=== PATIENT | female | born 1955 | race Caucasian/White ===

== ENCOUNTER 2017-09-02 09:19 | Inpatient (IN) | payer OTHER ==
[2017-09-02 09:32] VITALS: BMI 48.6
[2017-09-02] MEDS ORDERED: ASPIRIN 81 MG CHEWABLE TABLETS PO ONE (09:52)
[2017-09-02] MEDS ORDERED: SODIUM CHLORIDE 500 ML IV STA (09:52)
--- NOTE | 2017-09-02 09:53 | PDOC ---
Attending Attestation - HPI HPI: 09/02/17 10:27 The patient is a 62 year old female with a significant PMH of ME (on Plavix), HTN, asthma, and hyperlipidemia who presents to the emergency department with intermittent chest pain and palpitations beginning approximately 3 days ago. The patient describes her chest pain as an intermittent substernal pressure that is aggravated by exertion and alleviated by rest. The patient denies chest pain at presentation.The patient also reports noting elevated blood pressure readings at home, about in the 180s. The patient states her chest pain is not similar to her prior ME. The patient denies history of blood clots. She denies sick contacts or recent travel. Allergies: NKA PCP: Dr. Funes - Physicial Exam PE: 09/02/17 10:27 Vitals: Triage Vital signs reviewed General Appearance: no acute distress, well nourished well developed, Chest Wall: Nontender Cardiac: Regular rate and rhythm, no murmurs, no rubs, no gallops, Lungs: Clear to auscultation bilateral, good air movement bilaterally, Abdomen: Soft, nondistended, normal bowel sounds, nontender to palpation Extremities: Full range of motion to all extremities, no cyanosis, clubbing, or edema Skin: Warm and dry, no rashes or lesions, no petechiae Neuro: AOX3; Cranial Nerves 2-12 grossly intact, Strength intact to all extremities, Sensation intact to all extremities Psych: normal mood, normal affect - Medical Decision Making 09/02/17 10:27 The patient is a 62 year old female with a significant PMH of ME (on Plavix), HTN, asthma, and hyperlipidemia who presents to the emergency department with intermittent chest pain and palpitations beginning approximately 3 days ago. The patient describes her chest pain as an intermittent substernal pressure that is aggravated by exertion and alleviated by rest. The patient denies chest pain at presentation.The patient also reports noting elevated blood pressure readings at home, about in the 180s. The patient states her chest pain is not similar to her prior ME. The patient denies history of blood clots. She denies sick contacts or recent travel. Allergies: NKA PCP: Dr. Funes <Quan Curiel - Last Filed: 09/02/17 11:29> - Resident Resident Name: Dima Kim - ED Attending Attestation I have performed the following: I have examined & evaluated the patient, The case was reviewed & discussed with the resident, I agree w/resident's findings & plan, Exceptions are as noted - Medical Decision Making Differential diagnosis includes ACS versus ocular abnormality versus anemia. We'll check labs EKG d-dimer troponin observe and reassess. Heart score 5. Troponin negative. D-dimer negative. Low suspicion for PE. Will admit to medicine for further evaluation. Cardiology consulted. <Robert Cam - Last Filed: 09/02/17 16:00> Heart Score/ECG Review - ECG Impressions Comment:: 09/02/17 11:27 EKG performed at 938. Demonstrates sinus rhythm 100 bpm left ventricular hypertrophy. Biphasic T waves in leads V3 through V6. No ST elevations. Interpreted by me. <Robert Cam - Last Filed: 09/02/17 16:00>
--- NOTE | 2017-09-02 10:02 | PDOC ---
History of Present Illness - General Chief Complaint: Blood Pressure Problem Stated Complaint: BLOOD PRESSURE PROBLEM Time Seen by Provider: 09/02/17 09:37 History Source: Patient Exam Limitations: No Limitations - History of Present Illness Initial Comments: 09/02/17 09:58 Patient is a 62F with history of LA in 2017, HTN, obesity here today complaining of chest pain, palpitations and elevated blood pressure for the past four days. Her chest pain is worsened with exertion and improved with rest. Denies fevers, chills, nausea, vomiting. Denies history of blood clots, unilateral leg swelling, and recent travel. Denies fevers, chills, nausea, vomiting. Patient describes the pain as a substernal pressure. Does not know name of risk tech. On Plavix. PCP: Dejan Montalvo Past History - Past Medical History Allergies/Adverse Reactions: Allergies Allergy/AdvReac Type Severity Reaction Status Date / Time No Known Allergies Allergy Verified 09/02/17 09:25 Home Medications: Ambulatory Orders Atorvastatin Ca [Lipitor] 40 mg PO HS 09/02/17 Bisoprolol Fumarate [Zebeta (Nf) -] 10 mg PO DAILY 09/02/17 Clonidine HCl 0.1 mg PO HS 09/02/17 Clopidogrel Bisulfate [Plavix] 75 mg PO DAILY 09/02/17 Asthma: Yes Cardiac Disorders: Yes (MILD LA) COPD: No HTN: Yes Hypercholesterolemia: Yes - Suicide/Smoking/Psychosocial Hx Smoking History: Never smoked Have you smoked in the past 12 months: No Information on smoking cessation initiated: No Hx Alcohol Use: No Drug/Substance Use Hx: No Substance Use Type: None Review of Systems - Review of Systems Comments:: 09/02/17 10:02 GENERAL/CONSTITUTIONAL: No fever or chills. No weakness. HEAD, EYES, EARS, NOSE AND THROAT: No change in vision. No sore throat. CARDIOVASCULAR: Positive for chest pain. Neative for or shortness of breath RESPIRATORY: No cough, wheezing, or hemoptysis. GASTROINTESTINAL: No nausea, vomiting, diarrhea or constipation. GENITOURINARY: No dysuria, frequency, or change in urination. MUSCULOSKELETAL: No joint or muscle swelling or pain. No neck or back pain. SKIN: No rash NEUROLOGIC: No headache, vertigo, loss of consciousness, or change in strength/ sensation. HEMATOLOGIC/LYMPHATIC: No anemia, easy bleeding, or history of blood clots. ALLERGIC/IMMUNOLOGIC: No hives or skin allergy. *Physical Exam - Vital Signs Last Vital Signs Temp Pulse Resp BP Pulse Ox 98.6 F 100 H 18 178/108 100 09/02/17 09:26 09/02/17 09:26 09/02/17 09:26 09/02/17 09:26 09/02/17 09:26 - Physical Exam Comments: 09/02/17 10:03 GENERAL: Awake, alert, and fully oriented, in no acute distress, obese HEAD: No signs of trauma, normocephalic, atraumatic EYES: PERRLA, EOMI, sclera anicteric, conjunctiva clear ENT: Auricles normal inspection, hearing grossly normal, nares patent, oropharynx clear without exudates. Moist mucosa NECK: Normal ROM, supple, no lymphadenopathy, JVD, or masses LUNGS: No distress, speaks full sentences, clear to auscultation bilaterally HEART: Regular rate and rhythm, normal S1 and S2, no murmurs, rubs or gallops, peripheral pulses normal and equal bilaterally. ABDOMEN: Soft, nontender, normoactive bowel sounds. No guarding, no rebound. No masses EXTREMITIES: Normal inspection, Normal range of motion, no edema. No clubbing or cyanosis. NEUROLOGICAL: Cranial nerves II through XII grossly intact. Normal speech, normal gait, no focal sensorimotor deficits SKIN: Warm, Dry, normal turgor, no rashes or lesions noted. Heart Score/ECG Review - History History: Highly suspicious - Electrocardiogram EKG: Non specific repolarization disturbance - Age Age: 45-65 - Risk Factors Risk Factors Heart Score: Yes Hx Hypertension, Yes Hx Obesity Based on the list above the patient has:: 1-2 risk factors - Troponin Troponin: </= normal limit - Score Heart Score - Total: 5 ED Treatment Course - LABORATORY CBC & Chemistry Diagram: 09/02/17 10:29 09/02/17 10:29 - RADIOLOGY Radiology Studies Ordered: Category Date Time Status CHEST X-RAY PORTABLE* [RAD] Stat Radiology 09/02/17 09:55 Ordered Medical Decision Making - Medical Decision Making 09/02/17 10:03 Patient is 62F with history of CAD, HTN, obesity here today with chest pain and urinary frequency. Vital signs notable for tachycardia and BP to 178/100. DDx includes, but is not limited to: ACS, arrhythmia, PE. Will do basic cardiac workup, UA, d-dimer. EKG shows sinus tachycardia with rate of 100. No st elevations/depressions. T wave inversions in I, II, V4-V6. Normal ND/QRS/QTc intervals. Normal axis. 09/02/17 11:15 CXR shows no acute cardiopulmonary process. 09/02/17 11:37 Laboratory Tests 09/02/17 09/02/17 09/02/17 10:20 10:29 10:29 WBC 13.3 H Hgb 13.5 Plt Count 243 INR 1.01 D-Dimer 265 BUN Creatinine Troponin I Urine Nitrite Positive Ur Leukocyte Esterase 1+ H Urine WBC (Auto) 12 09/02/17 10:29 WBC Hgb Plt Count INR D-Dimer BUN 27 H Creatinine 1.1 H Troponin I < 0.02 Urine Nitrite Ur Leukocyte Esterase Urine WBC (Auto) CBC shows leukocytosis, D-dimer negative. UA positive for UTI. CMP shows possible dehydration. Troponin undetectable. Patient started on ceftriaxone. Patient has reassessed, feels better, tachycardia has resolved. Hospitalist paged for admission. 09/02/17 12:38 Dr Nix accepted. *DC/Admit/Observation/Transfer Diagnosis at time of Disposition: Chest pain - Discharge Dispostion Condition at time of disposition: Stable Decision to Admit order: Yes - Referrals Referrals: Michael Funes PA [Primary Care Provider] - - Patient Instructions - Post Discharge Activity
[2017-09-02] MEDS ORDERED: ASPIRIN 81 MG CHEWABLE TABLETS ONE (10:04)
[2017-09-02 10:38] LABS: BASO % 0.4 % (0-2.0); EOS % 0.1 % (0-4.5); HEMOGLOBIN 13.5 GM/dL (10.7-15.3); LYMPH % 10.4 % (8-40); MCHC 32.2 g/dl (32.0-36.0); MEAN CELL VOLUME 83.9 fl (80-96); MEAN PLT VOLUME 8.8 fl (7.5-11.1); MONO % 6.6 % (3.8-10.2); NEUT % 82.5 % (42.8-82.8); PLATELET COUNT 243 K/MM3 (134-434); RDW 15.9 % (11.6-15.6); WHITE BLOOD COUNT 13.3 K/mm3 (4.0-10.0)
[2017-09-02 10:40] LABS: URINE APPEARANCE SLCLOUDY; URINE BILIRUBIN NEGATIVE (<2.0 mg/dL); URINE BLOOD 2+ (NEGATIVE); URINE COLOR YELLOW; URINE GLUCOSE (UA) NEGATIVE (NEGATIVE); URINE KETONE NEGATIVE (NEGATIVE); URINE NITRITE POSITIVE (NEGATIVE); URINE PROTEIN NEGATIVE (NEGATIVE); URINE UROBILINOGEN NEGATIVE mg/dL (0.2-1.0)
[2017-09-02 10:44] LABS: URINE LEUK ESTERASE 1+ (NEGATIVE)
[2017-09-02 10:48] LABS: EPI CELLS FEW /HPF (FEW); URINE BACTERIA MANY /hpf (NONE SEEN); URINE MUCUS MANY
[2017-09-02 11:14] LABS: INR 1.01 (0.82-1.09); PROTHROMBIN TIME (PATIENT) 11.4 SEC (9.7-13.0)
[2017-09-02 11:21] LABS: ALBUMIN 4.1 g/dl (3.4-5.0); ALK PHOS 87 U/L (45-117); ANION GAP 9 (8-16); BILIRUBIN,TOTAL 0.6 mg/dL (0.2-1.0); BLOOD UREA NITROGEN 27 mg/dL (7-18); CALCIUM 8.8 mg/dL (8.5-10.1); CHLORIDE 103 mmol/L (98-107); CO2 29 mmol/L (21-32); CREATININE 1.1 mg/dL (0.55-1.02); GLUCOSE,RANDOM 142 mg/dL (74-106); MAGNESIUM 2.3 mg/dL (1.8-2.4); POTASSIUM 4.5 mmol/L (3.5-5.1); SGOT/AST 22 U/L (15-37); SGPT/ALT 33 U/L (12-78); SODIUM 141 mmol/L (136-145); TOT PROT 7.4 g/dl (6.4-8.2)
[2017-09-02] MEDS ORDERED: CEFTRIAXONE 1,000 MG in DEXTROSE 5%-WATER - 50 ML IVPB ONE (11:31)
[2017-09-02] MEDS ORDERED: CEFTRIAXONE 1 GM/50 ML BAG ONE (11:37)
--- NOTE | 2017-09-02 15:51 | PN ---
Teaching Attending Note Name of Resident: Ihsan Cartagena ATTENDING PHYSICIAN STATEMENT I saw and evaluated the patient. I reviewed the resident's note and discussed the case with the resident. I agree with the resident's findings and plan as documented with exceptions below. SUBJECTIVE: 62 yof with PMhx of CAD s/p ?Small [place] (in [place], per patient no cath or stenting) on plavix, HTN, HLD, morbid obesity, comes with 2-3 days of intermittent palpitations associated with 'breeze like feeling over her chest', non exertional transient with self resolution with no clear exacerbating or relieving factors. No prior similar history. Minimally active at baseline. Also reports some urinary frequency but no abdominal or back pain, fevers, chills, nausea, vomiting or new concerns. OBJECTIVE: Vital Signs Period Temp Pulse Resp BP Sys/[place] Pulse Ox Last 24 Hr 98.2 F-98.6 F 91-100 17-18 149-178/74-108 95-100 Intake & Output 08/30/17 08/31/17 09/01/17 09/02/17 23:59 23:59 23:59 23:59 Weight 320 lb GENERAL: Awake, alert, and fully oriented, in no acute distress, morbidly obese lady in no acute distress. HEAD: Normal with no signs of trauma. EYES: Pupils equal, round and reactive to light, extraocular movements intact, sclera anicteric, conjunctiva clear. No lid lag. EARS, NOSE, THROAT: Ears normal, nares patent, oropharynx clear without exudates. Moist mucous membranes. NECK: Soft, supple, no JVD LUNGS: distant breath sounds given body habitus, equal, clear to auscultation bilaterally. No wheezes, and no crackles. No accessory muscle use. HEART: S1s2 regular, systolic ejection murmur right sternal border. ABDOMEN: Soft, obes, nontender, not distended, normoactive bowel sounds, no guarding, no rebound, no masses. No suprapubic or CVA tenderness MUSCULOSKELETAL: Normal range of motion at all joints. No bony deformities or tenderness. No CVA tenderness. UPPER EXTREMITIES: 2+ pulses, warm, well-perfused. No cyanosis. No clubbing. No peripheral edema. LOWER EXTREMITIES: 2+ pulses, warm, well-perfused. No calf tenderness. No peripheral edema. NEUROLOGICAL: Cranial nerves II-XII grossly intact. Normal speech. PSYCHIATRIC: Cooperative. Good eye contact. Appropriate mood and affect. SKIN: Warm, dry, normal turgor, no rashes or lesions noted, normal capillary refill. Home Medication List Medication Instructions Recorded Confirmed Type Amlodipine Besylate 10 mg PO 09/02/17 History Atorvastatin Ca [Lipitor] 40 mg PO HS 09/02/17 09/02/17 History Bisoprolol Fumarate [Zebeta (Nf) -] 10 mg PO DAILY 09/02/17 09/02/17 History Clonidine HCl 0.1 mg PO HS 09/02/17 09/02/17 History Clopidogrel Bisulfate [Plavix] 75 mg PO DAILY 09/02/17 09/02/17 History Valsartan/Hydrochlorothiazide 1 each PO DAILY 09/02/17 09/02/17 History [Valsartan-Hctz 320-25 mg Tab] Active Medications Generic Name Dose Route Start Last Admin Trade Name Freq PRN Reason Stop Dose Admin Amlodipine Besylate 10 mg 09/03/17 10:00 Norvasc - PO DAILY [facility] Atenolol 50 mg 09/03/17 10:00 Tenormin - PO DAILY [facility] Atorvastatin Calcium 40 mg 09/02/17 22:00 Lipitor - PO HS [facility] Clonidine 0.1 mg 09/02/17 22:00 Catapres - PO HS [facility] Clopidogrel Bisulfate 75 mg 09/03/17 10:00 Plavix - PO DAILY [facility] Heparin Sodium (Porcine) 5,000 unit 09/02/17 22:00 Heparin - SQ TID [facility] Hydrochlorothiazide 25 mg 09/03/17 10:00 Hctz - PO DAILY [facility] Valsartan 320 mg 09/03/17 10:00 Diovan - PO DAILY [facility] Laboratory Results - last 24 hr 09/02/17 09/02/17 09/02/17 10:20 10:29 10:29 WBC 13.3 H RBC 5.00 Hgb 13.5 Hct 42.0 MCV 83.9 MCH 27.0 MCHC 32.2 RDW 15.9 H Plt Count 243 MPV 8.8 Neutrophils % 82.5 Lymphocytes % 10.4 Monocytes % 6.6 Eosinophils % 0.1 Basophils % 0.4 Nucleated RBC % 0 PT with INR 11.40 INR 1.01 D-Dimer 265 Sodium Potassium Chloride Carbon Dioxide Anion Gap BUN Creatinine Creat Clearance w eGFR Random Glucose Calcium Magnesium Total Bilirubin AST ALT Alkaline Phosphatase Creatine Kinase Creatine Kinase Index CK-MB (CK-2) Troponin I Total Protein Albumin Urine Color Yellow Urine Appearance Slcloudy Urine pH 6.0 Ur Specific [place] 1.024 Urine Protein Negative Urine Glucose (UA) Negative Urine Ketones Negative Urine Blood 2+ H Urine Nitrite Positive Urine Bilirubin Negative Urine Urobilinogen Negative Ur Leukocyte Esterase 1+ H Urine WBC (Auto) 12 Urine RBC (Auto) 19 Ur Epithelial Cells Few Urine Bacteria Many Urine Mucus Many 09/02/17 10:29 WBC RBC Hgb Hct MCV MCH MCHC RDW Plt Count MPV Neutrophils % Lymphocytes % Monocytes % Eosinophils % Basophils % Nucleated RBC % PT with INR INR D-Dimer Sodium 141 Potassium 4.5 Chloride 103 Carbon Dioxide 29 Anion Gap 9 BUN 27 H Creatinine 1.1 H Creat Clearance w eGFR 50.50 Random Glucose 142 H Calcium 8.8 Magnesium 2.3 Total Bilirubin 0.6 AST 22 ALT 33 Alkaline Phosphatase 87 Creatine Kinase 334 H Creatine Kinase Index 0.8 CK-MB (CK-2) 2.682 Troponin I < 0.02 Total Protein 7.4 Albumin 4.1 Urine Color Urine Appearance Urine pH Ur Specific [place] Urine Protein Urine Glucose (UA) Urine Ketones Urine Blood Urine Nitrite Urine Bilirubin Urine Urobilinogen Ur Leukocyte Esterase Urine WBC (Auto) Urine RBC (Auto) Ur Epithelial Cells Urine Bacteria Urine Mucus EKG - T inversion in I, aVL, biphasic T waves in V3-V6 CXR - no acute process ASSESSMENT AND PLAN: 62 yof with PMHx of CAD s/p ?Small [place] on plavix (no reported cardiac cath or stent per patient), HTN, HLD, Morbid obesity,admitted with palpitations, abnormal EKG and lower uncomplicated UTI. -Palpitations -EKG with lateral ischemia, no prior available -Lower uncomplicated UTI -Morbid obesity -CAD on plavix ?prior small [place] in 2017 -HTN -HLD PLan: Telemetry, r/o ACS. cardiology consult. ASA/plavix/statin/atenolol. Check lipid panel. Amlodipine/valsartan/HCTZ/clonidine for BP. 2D echo. Ceftriaxone, follow up urine cultures. Advised patient on outpatient sleep study and likely underlying CIPRIANO. DVTPPX lovenox Dispo pending resolution of medical issues. Plan discussed with patient in detail, all questions answered. Total admit time 65 min.
--- NOTE | 2017-09-02 16:37 | HP ---
CHIEF COMPLAINT: palpitations PCP: HISTORY OF PRESENT ILLNESS: 62 yo Thai speaking F with PMhx of HTN, HLD and ME presents with 3 day history of palpitations. She states that for the past three days she has had intermittent episodes of palpitations which last for few seconds and resolve on their own. She also states that she has a "breeze-like" sensation that radiates across her chest and down her left arm. Not associated with activity and resolved spontaneously. She had a "mini [place]" one year prior in [place] but denies ever having cath or stress test done. Of note she states that the only change is that when these symptoms started it was after receiving cortisol injection for shoulder pain.She also endorses increased urinary frequency. Currently denies CP,BAIRD,SOB, abdominal pain, nausea, vomiting, fever , or chills. ER course was notable for: (1)EKG was NSR with T wave abnormalities in lateral leads. (2)1st troponin was negative. (3)UA showed UTI and cultures sent and started on Ceftiaxone. Recent Travel: Denies PAST MEDICAL HISTORY: Morbid obesity, HTN, HLD, ME (2017) PAST SURGICAL HISTORY: hernia repair, hysterectomy, cholecystectomy. Social History: Smoking:never Alcohol:denies Drugs: denies Family History: Allergies No Known Allergies Allergy (Verified 09/02/17 09:25) HOME MEDICATIONS: Home Medications Medication Instructions Recorded Amlodipine Besylate 10 mg PO 09/02/17 Atorvastatin Ca [Lipitor] 40 mg PO HS 09/02/17 Bisoprolol Fumarate [Zebeta (Nf) -] 10 mg PO DAILY 09/02/17 Clonidine HCl 0.1 mg PO HS 09/02/17 Clopidogrel Bisulfate [Plavix] 75 mg PO DAILY 09/02/17 Valsartan/Hydrochlorothiazide 1 each PO DAILY 09/02/17 [Valsartan-Hctz 320-25 mg Tab] REVIEW OF SYSTEMS CONSTITUTIONAL: Absent: fever, chills, diaphoresis, generalized weakness, malaise, loss of appetite, weight change HEENT: Absent: rhinorrhea, nasal congestion, throat pain, throat swelling, difficulty swallowing, mouth swelling, ear pain, eye pain, visual changes CARDIOVASCULAR: Absent: chest pain, syncope, palpitations, irregular heart rate, lightheadedness , peripheral edema RESPIRATORY: Absent: cough, shortness of breath, dyspnea with exertion, orthopnea, wheezing, stridor, hemoptysis GASTROINTESTINAL: Absent: abdominal pain, abdominal distension, nausea, vomiting, diarrhea, constipation, melena, hematochezia GENITOURINARY: Absent: dysuria, frequency, urgency, hesitancy, hematuria, flank pain, genital pain MUSCULOSKELETAL: Absent: myalgia, arthralgia, joint swelling, back pain, neck pain SKIN: Absent: rash, itching, pallor HEMATOLOGIC/IMMUNOLOGIC: Absent: easy bleeding, easy bruising, lymphadenopathy, frequent infections ENDOCRINE: Absent: unexplained weight gain, unexplained weight loss, heat intolerance, cold intolerance NEUROLOGIC: Absent: headache, focal weakness or paresthesias, dizziness, unsteady gait, seizure, mental status changes, bladder or bowel incontinence PSYCHIATRIC: Absent: anxiety, depression, suicidal or homicidal ideation, hallucinations. PHYSICAL EXAMINATION Vital Signs - 24 hr 09/02/17 09/02/17 09/02/17 09:26 09:59 10:40 Temperature 98.6 F Pulse Rate 100 H Pulse Rate [ 91 H Apical] Respiratory 18 17 Rate Blood Pressure 178/108 Blood Pressure 165/74 [Right Arm] O2 Sat by Pulse 100 100 96 Oximetry (%) 09/02/17 14:30 Temperature 98.2 F Pulse Rate Pulse Rate [ 95 H Apical] Respiratory 18 Rate Blood Pressure Blood Pressure 149/79 [Right Arm] O2 Sat by Pulse 95 Oximetry (%) GENERAL: AAOx3, NAD HEAD:NC/AT EYES: PERRLA, EOMI, conjunctiva clear. No lid lag. EARS, NOSE, THROAT:Moist mucous membranes. NECK: supple without lymphadenopathy, JVD, or masses. LUNGS: CTAB. No wheezes, and no crackles. No accessory muscle use. HEART: RRR, normal S1 and S2 ,3/6 MELISSA RSB ABDOMEN: Soft, obese, ventral hernia, nontender, not distended, normoactive bowel sounds, no guarding, no rebound, no masses. MUSCULOSKELETAL: Normal range of motion at all joints. No bony deformities or tenderness. No CVA tenderness. UPPER EXTREMITIES: 2+ pulses, warm, well-perfused. No cyanosis. No clubbing. No peripheral edema. LOWER EXTREMITIES: 2+ pulses, warm, well-perfused. No calf tenderness.trace edema bilat. NEUROLOGICAL: Cranial nerves II-XII intact. Normal speech. PSYCHIATRIC: Cooperative. Good eye contact. Appropriate mood and affect. Laboratory Results - last 24 hr 09/02/17 09/02/17 09/02/17 10:20 10:29 10:29 WBC 13.3 H RBC 5.00 Hgb 13.5 Hct 42.0 MCV 83.9 MCH 27.0 MCHC 32.2 RDW 15.9 H Plt Count 243 MPV 8.8 Neutrophils % 82.5 Lymphocytes % 10.4 Monocytes % 6.6 Eosinophils % 0.1 Basophils % 0.4 Nucleated RBC % 0 PT with INR 11.40 INR 1.01 D-Dimer 265 Sodium Potassium Chloride Carbon Dioxide Anion Gap BUN Creatinine Creat Clearance w eGFR Random Glucose Calcium Magnesium Total Bilirubin AST ALT Alkaline Phosphatase Creatine Kinase Creatine Kinase Index CK-MB (CK-2) Troponin I Total Protein Albumin Urine Color Yellow Urine Appearance Slcloudy Urine pH 6.0 Ur Specific [place] 1.024 Urine Protein Negative Urine Glucose (UA) Negative Urine Ketones Negative Urine Blood 2+ H Urine Nitrite Positive Urine Bilirubin Negative Urine Urobilinogen Negative Ur Leukocyte Esterase 1+ H Urine WBC (Auto) 12 Urine RBC (Auto) 19 Ur Epithelial Cells Few Urine Bacteria Many Urine Mucus Many 09/02/17 10:29 WBC RBC Hgb Hct MCV MCH MCHC RDW Plt Count MPV Neutrophils % Lymphocytes % Monocytes % Eosinophils % Basophils % Nucleated RBC % PT with INR INR D-Dimer Sodium 141 Potassium 4.5 Chloride 103 Carbon Dioxide 29 Anion Gap 9 BUN 27 H Creatinine 1.1 H Creat Clearance w eGFR 50.50 Random Glucose 142 H Calcium 8.8 Magnesium 2.3 Total Bilirubin 0.6 AST 22 ALT 33 Alkaline Phosphatase 87 Creatine Kinase 334 H Creatine Kinase Index 0.8 CK-MB (CK-2) 2.682 Troponin I < 0.02 Total Protein 7.4 Albumin 4.1 Urine Color Urine Appearance Urine pH Ur Specific [place] Urine Protein Urine Glucose (UA) Urine Ketones Urine Blood Urine Nitrite Urine Bilirubin Urine Urobilinogen Ur Leukocyte Esterase Urine WBC (Auto) Urine RBC (Auto) Ur Epithelial Cells Urine Bacteria Urine Mucus ASSESSMENT/PLAN: 62 yo Thai speaking F with PMhx of HTN, HLD and ME presents with 3 day history of palpitations admitted to telemetry for possible ACS and UTI. Problem List - Problem (1) Chest pain Assessment/Plan: Admit to telemetry * r/o ACS * Trend trops * Cardiology consult * ASA 81mg * ECHO pending * continue BB and plavix (2) UTI (urinary tract infection) Assessment/Plan: Cultures and sensitivity pending. * Ceftriaxone 1gm daily (3) HTN (hypertension) Assessment/Plan: Continue home meds. * Amlodipine Besylate (Norvasc -) 10 mg PO DAILY * Atenolol (Tenormin -) 50 mg PO DAILY * Clonidine (Catapres -) 0.1 mg PO HS * Valsartan (Diovan -) 320 mg PO DAILY (4) HLD (hyperlipidemia) Assessment/Plan: Lipid panel pending, * Continue lipitor (5) DVT prophylaxis Assessment/Plan: SCD's bilaterally * SQ heparin 5000 units Q8H Visit type - Emergency Visit Emergency Visit: Yes ED Registration Date: 09/02/17 Care time: The patient presented to the Emergency Department on the above date and was hospitalized for further evaluation of their emergent condition. - New Patient This patient is new to me today: Yes Date on this admission: 09/02/17 - Critical Care Critical Care patient: No Hospitalist Screening - Colonoscopy Questionnaire Colonoscopy Questionnaire: Colonoscopy Questionnaire - Patient: 50 - 75 years old and never had a screening colonoscopy: No History of colon or rectal polyps, or CA: No History of IBD, Crohn's disease or UC: No History of abdominal radiation therapy as a child: No - Relative: 1 with colon or rectal CA, or polyps at age 60 or younger: No Colon or rectal CA diagnosed at age 45 or younger: No Multiple relatives with colon or rectal CA: No - Outcome: Screening Result: Negative Screen
--- NOTE | 2017-09-02 17:30 | EKG ---
Test Reason : Blood Pressure : / mmHG Vent. Rate : 100 BPM Atrial Rate : 100 BPM P-R Int : 152 ms QRS Dur : 086 ms QT Int : 340 ms P-R-T Axes : 071 -08 106 degrees QTc Int : 438 ms NORMAL SINUS RHYTHM POSSIBLE LEFT ATRIAL ENLARGEMENT LEFT VENTRICULAR HYPERTROPHY T WAVE ABNORMALITY, CONSIDER LATERAL ISCHEMIA ABNORMAL ECG NO PREVIOUS ECGS AVAILABLE Confirmed by MIKO ZAYAS MD ([id number]) on 09/02/2017 5:30:23 PM Referred By: Confirmed By:MIKO ZAYAS MD
--- NOTE | 2017-09-02 17:30 | EKG ---
Test Reason : Blood Pressure : / mmHG Vent. Rate : 091 BPM Atrial Rate : 091 BPM P-R Int : 128 ms QRS Dur : 088 ms QT Int : 356 ms P-R-T Axes : 045 -02 114 degrees QTc Int : 437 ms NORMAL SINUS RHYTHM POSSIBLE LEFT ATRIAL ENLARGEMENT LEFT VENTRICULAR HYPERTROPHY T WAVE ABNORMALITY, CONSIDER LATERAL ISCHEMIA ABNORMAL ECG WHEN COMPARED WITH ECG OF 02-SEP-2017 09:38, NO SIGNIFICANT CHANGE WAS FOUND Confirmed by MIKO ZAYAS MD ([id number]) on 09/02/2017 5:30:32 PM Referred By: Confirmed By:MIKO ZAYAS MD
[2017-09-02] MEDS: HEPARIN NA (PORCINE) 5,000 UNITS/ML 1ML VIAL SQ SCH (21:20)
[2017-09-02] MEDS: cloNIDine HCL 0.1 MG TABLET PO SCH (21:20)
[2017-09-02] MEDS: ATORVASTATIN CA 40 MG TABLET (FP) PO SCH (21:20)
[2017-09-03] MEDS: HEPARIN NA (PORCINE) 5,000 UNITS/ML 1ML VIAL SQ SCH ×3 (06:40→21:09)
[2017-09-03 07:33] LABS: BASO % 0.3 % (0-2.0); HEMOGLOBIN 13.1 GM/dL (10.7-15.3); LYMPH % 12.4 % (8-40); MCH 26.8 pg (25.7-33.7); MEAN CELL VOLUME 83.6 fl (80-96); MONO % 6.8 % (3.8-10.2); NEUT % 80.5 % (42.8-82.8); PLATELET COUNT 225 K/MM3 (134-434); RBC 4.91 M/mm3 (3.60-5.2); RDW 16.2 % (11.6-15.6); WHITE BLOOD COUNT 11.7 K/mm3 (4.0-10.0)
[2017-09-03 08:23] LABS: CHLORIDE 103 mmol/L (98-107); POTASSIUM 4.3 mmol/L (3.5-5.1); SODIUM 140 mmol/L (136-145)
[2017-09-03 08:33] LABS: ALBUMIN 3.7 g/dl (3.4-5.0); ALK PHOS 80 U/L (45-117); ANION GAP 8 (8-16); BILIRUBIN,TOTAL 0.6 mg/dL (0.2-1.0); BLOOD UREA NITROGEN 26 mg/dL (7-18); CALCIUM 8.8 mg/dL (8.5-10.1); CHOLESTEROL 147 mg/dL (50-200); CO2 29 mmol/L (21-32); CREATININE 1.1 mg/dL (0.55-1.02); GLUCOSE,RANDOM 157 mg/dL (74-106); HDL CHOLESTEROL 55 mg/dL (40-60); MAGNESIUM 2.4 mg/dL (1.8-2.4); PHOSPHOROUS 4.2 mg/dL (2.5-4.9); SGOT/AST 19 U/L (15-37); SGPT/ALT 32 U/L (12-78); TOT PROT 6.8 g/dl (6.4-8.2); TRIGLYCERIDES 78 mg/dL (35-160)
[2017-09-03] MEDS ORDERED: cefTRIAXone SODIUM 1 GM VIAL ONE (09:34)
[2017-09-03] MEDS ORDERED: DEXTROSE 5%-WATER - 50 ML IVPB ONE (09:34)
[2017-09-03] MEDS: amLODIPine BESYLATE 10 MG TABLET (FP) PO SCH (09:40)
[2017-09-03] MEDS: CLOPIDOGREL BISULFATE 75 MG TABLET (FP) PO SCH (09:40)
[2017-09-03] MEDS: CEFTRIAXONE 1 GM in DEXTROSE 5%-WATER - 50 ML IVPB SCH (09:41)
[2017-09-03] MEDS ORDERED: VALSARTAN 160 MG TABLET (UD) PO SCH (10:00)
[2017-09-03] MEDS ORDERED: BISOPROLOL FUMARATE 10 MG PO SCH (10:00)
[2017-09-03] MEDS ORDERED: ATENOLOL 50 MG TABLET (FP) PO SCH ×2 (10:00→12:01)
[2017-09-03] MEDS ORDERED: PATIENT'S OWN MEDICATION (NON-FORMULARY) (Valsartan/Hydrochlorothiazide [Valsartan-Hctz 32 PO SCH (10:00)
[2017-09-03] MEDS ORDERED: HYDROCHLOROTHIAZIDE 25 MG TABLET (FP) PO SCH (10:00)
--- NOTE | 2017-09-03 12:21 | PN ---
Progress Note (short form) - Note Progress Note: Patient seen and examined. No chest pain or palpitations. no abdominal or urinary symptoms currently. Objective: Vital Signs Period Temp Pulse Resp BP Sys/Austin Pulse Ox Last 24 Hr 97.8 F-99.0 F 80-106 18-22 129-160/76-85 93-96 Intake & Output 08/31/17 09/01/17 09/02/17 09/03/17 23:59 23:59 23:59 23:59 Intake Total 300 Balance 300 Weight 320 lb General: lying in bed in no acute distress, BMI 48.7 Chest: no rales or wheezing, limited by body habitus Abdomen:Soft obese, NT, no CVA tenderness Extremities: no edema Home Medication List Medication Instructions Recorded Confirmed Type Amlodipine Besylate 10 mg PO 09/02/17 History Atorvastatin Ca [Lipitor] 40 mg PO HS 09/02/17 09/02/17 History Bisoprolol Fumarate [Zebeta (Nf) -] 10 mg PO DAILY 09/02/17 09/02/17 History Clonidine HCl 0.1 mg PO HS 09/02/17 09/02/17 History Clopidogrel Bisulfate [Plavix] 75 mg PO DAILY 09/02/17 09/02/17 History Valsartan/Hydrochlorothiazide 1 each PO DAILY 09/02/17 09/02/17 History [Valsartan-Hctz 320-25 mg Tab] Active Medications Generic Name Dose Route Start Last Admin Trade Name Freq PRN Reason Stop Dose Admin Amlodipine Besylate 10 mg 09/03/17 10:00 09/03/17 09:40 Norvasc - PO 10 mg DAILY CORNELIO Administration Atorvastatin Calcium 40 mg 09/02/17 22:00 09/02/17 21:20 Lipitor - PO 40 mg HS CORNELIO Administration Clonidine 0.1 mg 09/02/17 22:00 09/02/17 21:20 Catapres - PO 0.1 mg HS CORNELIO Administration Clopidogrel Bisulfate 75 mg 09/03/17 10:00 09/03/17 09:40 Plavix - PO 75 mg DAILY CORNELIO Administration Heparin Sodium (Porcine) 5,000 unit 09/02/17 22:00 09/03/17 06:40 Heparin - SQ 5,000 unit TID CORNELIO Administration Hydrochlorothiazide 25 mg 09/03/17 12:30 Hctz - PO DAILY CORNELIO Ceftriaxone Sodium 1 gm/ 50 mls @ 100 mls/hr 09/03/17 10:00 09/03/17 09:41 Dextrose IVPB 100 mls/hr DAILY [facility]CLUDES [facility] Administration Valsartan 320 mg 09/03/17 12:01 Diovan - PO DAILY COUNT INCLUDES [facility] Laboratory Results - last 24 hr 09/02/17 09/02/17 09/02/17 10:29 16:24 21:30 WBC RBC Hgb Hct MCV MCH MCHC RDW Plt Count MPV Neutrophils % Lymphocytes % Monocytes % Eosinophils % Basophils % Nucleated RBC % Sodium Potassium Chloride Carbon Dioxide Anion Gap BUN Creatinine Creat Clearance w eGFR Random Glucose Hemoglobin A1c % Calcium Phosphorus Magnesium Total Bilirubin AST ALT Alkaline Phosphatase Creatine Kinase Index 0.8 CK-MB (CK-2) 2.682 Troponin I < 0.02 0.02 Total Protein Albumin Triglycerides Cholesterol Total LDL Cholesterol HDL Cholesterol 09/03/17 09/03/17 09/03/17 07:10 07:10 07:10 WBC 11.7 H RBC 4.91 Hgb 13.1 Hct 41.0 MCV 83.6 MCH 26.8 MCHC 32.0 RDW 16.2 H Plt Count 225 MPV 9.0 Neutrophils % 80.5 Lymphocytes % 12.4 Monocytes % 6.8 Eosinophils % 0.0 D Basophils % 0.3 Nucleated RBC % 0 Sodium 140 Potassium 4.3 Chloride 103 Carbon Dioxide 29 Anion Gap 8 BUN 26 H Creatinine 1.1 H Creat Clearance w eGFR 50.50 Random Glucose 157 H Hemoglobin A1c % 7.7 H Calcium 8.8 Phosphorus 4.2 Magnesium 2.4 Total Bilirubin 0.6 AST 19 ALT 32 Alkaline Phosphatase 80 Creatine Kinase Index CK-MB (CK-2) Troponin I Total Protein 6.8 Albumin 3.7 Triglycerides 78 Cholesterol 147 Total LDL Cholesterol 82 HDL Cholesterol 55 Microbiology 09/02/17 10:10 Urine - Urine Clean Catch Urine Culture - Preliminary Lactose Fermenting Neg Bacilli Assessment/Plan: 62 yof with PMHx of CAD s/p ?Small MS on plavix (no reported cardiac cath or stent per patient), HTN, HLD, Morbid obesity,admitted with palpitations, abnormal EKG and lower uncomplicated UTI. -Palpitations -EKG with lateral ischemia, no prior available -Lower uncomplicated UTI -Morbid obesity -CAD on plavix ?prior small MS in 2017 -HTN -HLD PLan: No events on telemetry,. ACS ruled out. Follow up Cardiology input and 2D echo. ASA/plavix/statin/atenolol (no bisoprolol inhouse). Lipid panel noted. Amlodipine/valsartan/HCTZ/clonidine for BP. Ceftriaxone day 2, urine cultures noted. Advised patient on outpatient sleep study and likely underlying CIPRIANO. DVTPPX lovenox Dispo pending resolution of medical issues. Plan discussed with patient in detail, all questions answered. PT eval Visit type - Emergency Visit Emergency Visit: No - New Patient This patient is new to me today: No - Critical Care Critical Care patient: No
[2017-09-03] MEDS ORDERED: ATENOLOL 50 MG TABLET (FP) PO ONE (12:30)
[2017-09-03] MEDS: HYDROCHLOROTHIAZIDE 25 MG TABLET (FP) PO SCH (14:05)
--- NOTE | 2017-09-03 17:46 | CON.CARD ---
Cardiology Consult (text) - Consultation Consultation Note: CC: cp 62 yo with h/o possible prior "small" CA (no intervention) - on Plavix, HTN, HL , Morbid obesity, ? dm (elevated a1c), asthma who p/w cp, hospital course notable for uti. sx's began 3 days ago. describes her chest pain as a 'breeze like feeling over her chest', non-exertional transient with self resolution with no clear exacerbating or relieving factors.. Has not experienced similar sx's in the past. Currently cp free. assoc with palps. s/p 500 cc NS in ER. States recently bp has been uncontrolled with sbp's up to 180s. Denies sob, orthopnea, pnd, le edema, dizziness, claudication or transient neurologic symptoms Denies fcs, n/v/d , cough, congestion, rash, h/a, visual disturbances. pmhx/pshx: per hpi, hernia repair, hysterectomy, cholecystectomy. social hx: never smoker fam hx: no premature cad ros: per hpi Ambulatory Orders Amlodipine Besylate 10 mg PO 09/02/17 Atorvastatin Ca [Lipitor] 40 mg PO HS 09/02/17 Bisoprolol Fumarate [Zebeta (Nf) -] 10 mg PO DAILY 09/02/17 Clonidine HCl 0.1 mg PO HS 09/02/17 Clopidogrel Bisulfate [Plavix] 75 mg PO DAILY 09/02/17 Valsartan/Hydrochlorothiazide [Valsartan-Hctz 320-25 mg Tab] 1 each PO DAILY Current Medications Amlodipine Besylate (Norvasc -) 10 mg PO DAILY [facility] Last Admin: 09/03/17 09:40 Dose: 10 mg Atenolol (Tenormin -) 100 mg PO DAILY [facility] Atorvastatin Calcium (Lipitor -) 40 mg PO [facility] Last Admin: 09/02/17 21:20 Dose: 40 mg Clonidine (Catapres -) 0.1 mg PO HS [facility] Last Admin: 09/02/17 21:20 Dose: 0.1 mg Clopidogrel Bisulfate (Plavix -) 75 mg PO DAILY [facility] Last Admin: 09/03/17 09:40 Dose: 75 mg Heparin Sodium (Porcine) (Heparin -) 5,000 unit SQ TID [facility] Last Admin: 09/03/17 14:05 Dose: 5,000 unit Hydrochlorothiazide (Hctz -) 25 mg PO DAILY [facility] Last Admin: 09/03/17 14:05 Dose: 25 mg Ceftriaxone Sodium 1 gm/ (Dextrose) 50 mls @ 100 mls/hr IVPB DAILY [facility] Last Admin: 09/03/17 09:41 Dose: 100 mls/hr Valsartan (Diovan -) 320 mg PO DAILY [facility] Vital Signs - 24 hr 09/02/17 09/02/17 09/02/17 17:49 18:01 20:27 Temperature 98.1 F 97.8 F Pulse Rate 98 H 106 H Respiratory 22 20 Rate Blood Pressure 151/85 131/77 O2 Sat by Pulse 96 94 L Oximetry (%) 09/03/17 09/03/17 09/03/17 01:00 05:00 08:56 Temperature 98.8 F 99.0 F 99 F Pulse Rate 88 80 84 Respiratory 20 20 18 Rate Blood Pressure 129/76 156/76 160/84 O2 Sat by Pulse Oximetry (%) 09/03/17 09/03/17 09:00 14:00 Temperature 98.4 F Pulse Rate 63 Respiratory 18 22 Rate Blood Pressure 114/61 O2 Sat by Pulse 93 L Oximetry (%) Intake & Output 09/01/17 09/02/17 09/03/17 09/04/17 07:59 07:59 07:59 07:59 Intake Total 300 Balance 300 Weight 320 lb NAD, calm JVD flat, neck supple ctab, nl effort rrr nl s1, s2. no mrg + bs soft nt nd ext without e/c/c + dp/pt, no carotid bruits no jaundice, diaphoresis aaox3 CBC, BMP 09/03/17 07:10 09/03/17 07:10 Microbiology 09/02/17 10:10 Urine - Urine Clean Catch Urine Culture - Preliminary Lactose Fermenting Neg Bacilli Laboratory Tests 09/02/17 09/02/17 09/02/17 10:20 10:29 10:29 INR 1.01 D-Dimer 265 Hemoglobin A1c % Magnesium Creatine Kinase 334 H Creatine Kinase Index 0.8 CK-MB (CK-2) 2.682 Troponin I < 0.02 Albumin 4.1 Triglycerides Cholesterol Total LDL Cholesterol HDL Cholesterol Urine Nitrite Positive 09/02/17 09/03/17 09/03/17 16:24 07:10 07:10 INR D-Dimer Hemoglobin A1c % 7.7 H Magnesium 2.4 Creatine Kinase Creatine Kinase Index CK-MB (CK-2) Troponin I < 0.02 Albumin 3.7 Triglycerides 78 Cholesterol 147 Total LDL Cholesterol 82 HDL Cholesterol 55 Urine Nitrite EKG: sr, 100 bpm. lvh. biphasic twaves in lateral leads. ? SC depressions EKG #2: sr, 91 bpm. slight extension of biphasic t waves in to anterolateral leads. otherwise similar tele: sr cxr: wnl 62 yo with h/o possible prior "small" CA (no intervention) - on Plavix, HTN, HL , Morbid obesity, asthma who p/w cp, hospital course notable for uti. cp/palps/hx of prior cad?/hl - currently cp free - ce's neg x 3. EKG with t-wave abnormalities. Recommend echo and stress test. Recommend esr, crp to r/o pericarditis. - con't medical therapy with plavix, statin, atenolol, norvasc - tele monitoring, lyte repletion prn. - hga1c elevated, dm assessment per pmd htn - currently labile, con't to monitor on home regimen. uti: - ongoing mgm't per pmd.
[2017-09-03] MEDS ORDERED: PT OWN MED DRAWER 7, Y5N ONE (18:42)
[2017-09-03] MEDS ORDERED: INSULIN (NOVOLOG) ASPART 100 UNITS/ML 10ML VIAL ONE (20:47)
[2017-09-03] MEDS: cloNIDine HCL 0.1 MG TABLET PO SCH (21:08)
[2017-09-03] MEDS: INSULIN SLIDING SCALE (NOVOLOG) 1 VIAL SQ SCH (21:09)
[2017-09-03] MEDS: ATORVASTATIN CA 40 MG TABLET (FP) PO SCH (21:09)
[2017-09-04] MEDS: INSULIN SLIDING SCALE (NOVOLOG) 1 VIAL SQ SCH ×4 (06:05→22:19)
[2017-09-04] MEDS: HEPARIN NA (PORCINE) 5,000 UNITS/ML 1ML VIAL SQ SCH ×3 (06:12→22:19)
[2017-09-04 07:18] LABS: BASO % 0.3 % (0-2.0); EOS % 0.3 % (0-4.5); HEMATOCRIT 40.8 % (32.4-45.2); HEMOGLOBIN 13.1 GM/dL (10.7-15.3); LYMPH % 14.3 % (8-40); MCHC 32.2 g/dl (32.0-36.0); MEAN CELL VOLUME 83.7 fl (80-96); MONO % 8.3 % (3.8-10.2); NEUT % 76.8 % (42.8-82.8); PLATELET COUNT 236 K/MM3 (134-434); RBC 4.87 M/mm3 (3.60-5.2); RDW 16.5 % (11.6-15.6); WHITE BLOOD COUNT 11.9 K/mm3 (4.0-10.0)
[2017-09-04 07:42] LABS: ANION GAP 6 (8-16); BLOOD UREA NITROGEN 29 mg/dL (7-18); CALCIUM 8.8 mg/dL (8.5-10.1); CHLORIDE 103 mmol/L (98-107); CO2 30 mmol/L (21-32); CREATININE 1.2 mg/dL (0.55-1.02); GLUCOSE,RANDOM 132 mg/dL (74-106); MAGNESIUM 2.5 mg/dL (1.8-2.4); PHOSPHOROUS 4.4 mg/dL (2.5-4.9); POTASSIUM 4.8 mmol/L (3.5-5.1); SODIUM 139 mmol/L (136-145)
[2017-09-04] MEDS ORDERED: cefTRIAXone SODIUM 1 GM VIAL ONE ×2 (07:55→09:08)
[2017-09-04] MEDS ORDERED: DEXTROSE 5%-WATER - 50 ML IVPB ONE ×2 (07:55→09:08)
[2017-09-04] MEDS: VALSARTAN 160 MG TABLET (UD) PO SCH (09:06)
[2017-09-04] MEDS: CLOPIDOGREL BISULFATE 75 MG TABLET (FP) PO SCH (09:06)
[2017-09-04] MEDS: HYDROCHLOROTHIAZIDE 25 MG TABLET (FP) PO SCH (09:06)
[2017-09-04] MEDS: amLODIPine BESYLATE 10 MG TABLET (FP) PO SCH (09:06)
[2017-09-04] MEDS: CEFTRIAXONE 1 GM in DEXTROSE 5%-WATER - 50 ML IVPB SCH (09:09)
[2017-09-04] MEDS: ATENOLOL 50 MG TABLET (FP) PO SCH (09:09)
--- NOTE | 2017-09-04 11:27 | PN ---
Teaching Attending Note Name of Resident: Cory Farmer ATTENDING PHYSICIAN STATEMENT I saw and evaluated the patient. I reviewed the resident's note and discussed the case with the resident. I agree with the resident's findings and plan as documented with exceptions below. SUBJECTIVE: Patient seen and examined. no further c/o palpitations, chest pain. Denies any nausea, vomiting, abdominal pain, back pain or urinary symptoms. Feels better. OBJECTIVE: Vital Signs Period Temp Pulse Resp BP Sys/Austin Pulse Ox Last 24 Hr 97.3 F-98.4 F 54-65 20-22 114-167/61-84 95-97 Intake & Output 09/01/17 09/02/17 09/03/17 09/04/17 23:59 23:59 23:59 23:59 Intake Total 300 300 Balance 300 300 Weight 320 lb General: morbidly obese in bed in no acute distress Chest: Limited by habitus, no rales or wheezing abdomen:soft, obese, NT Extremities: no edema Home Medication List Medication Instructions Recorded Confirmed Type Amlodipine Besylate 10 mg PO DAILY 09/02/17 09/04/17 History Atorvastatin Ca [Lipitor] 40 mg PO HS 09/02/17 09/02/17 History Bisoprolol Fumarate [Zebeta (Nf) -] 10 mg PO DAILY 09/02/17 09/02/17 History Clonidine HCl 0.1 mg PO HS 09/02/17 09/02/17 History Clopidogrel Bisulfate [Plavix] 75 mg PO DAILY 09/02/17 09/02/17 History Valsartan/Hydrochlorothiazide 1 each PO DAILY 09/02/17 09/02/17 History [Valsartan-Hctz 320-25 mg Tab] Active Medications Generic Name Dose Route Start Last Admin Trade Name Freq PRN Reason Stop Dose Admin Amlodipine Besylate 10 mg 09/03/17 10:00 09/04/17 09:06 Norvasc - PO 10 mg DAILY CORNELIO Administration Atenolol 100 mg 09/04/17 10:00 09/04/17 09:09 Tenormin - PO 100 mg DAILY CORNELIO Administration Atorvastatin Calcium 40 mg 09/02/17 22:00 09/03/17 21:09 Lipitor - PO 40 mg HS CORNELIO Administration Clonidine 0.1 mg 09/02/17 22:00 09/03/17 21:08 Catapres - PO 0.1 mg HS CORNELIO Administration Clopidogrel Bisulfate 75 mg 09/03/17 10:00 09/04/17 09:06 Plavix - PO 75 mg DAILY CORNELIO Administration Heparin Sodium (Porcine) 5,000 unit 09/02/17 22:00 09/04/17 06:12 Heparin - SQ 5,000 unit TID CORNELIO Administration Hydrochlorothiazide 25 mg 09/03/17 12:30 09/04/17 09:06 Hctz - PO 25 mg DAILY CORNELIO Administration Ertapenem 1 gm/ Sodium 50 mls @ 50 mls/hr 09/04/17 11:30 Chloride IVPB DAILY [facility] Protocol Insulin Aspart 1 vial 09/03/17 22:00 09/04/17 06:05 Novolog Vial Sliding Scale - SQ Not Given ACHS [facility] Protocol Valsartan 320 mg 09/03/17 12:01 09/04/17 09:06 Diovan - PO 320 mg DAILY CORNELIO Administration Laboratory Results - last 24 hr 09/03/17 09/04/17 09/04/17 21:08 05:18 06:50 WBC 11.9 H RBC 4.87 Hgb 13.1 Hct 40.8 MCV 83.7 MCH 27.0 MCHC 32.2 RDW 16.5 H Plt Count 236 MPV 9.0 Neutrophils % 76.8 Lymphocytes % 14.3 Monocytes % 8.3 Eosinophils % 0.3 D Basophils % 0.3 Nucleated RBC % 0 ESR Sodium Potassium Chloride Carbon Dioxide Anion Gap BUN Creatinine POC Glucometer 129 125 Random Glucose Calcium Phosphorus Magnesium C-Reactive Protein 09/04/17 09/04/17 09/04/17 06:50 06:50 06:50 WBC RBC Hgb Hct MCV MCH MCHC RDW Plt Count MPV Neutrophils % Lymphocytes % Monocytes % Eosinophils % Basophils % Nucleated RBC % ESR 5 Sodium 139 Potassium 4.8 Chloride 103 Carbon Dioxide 30 Anion Gap 6 L BUN 29 H Creatinine 1.2 H POC Glucometer Random Glucose 132 H Calcium 8.8 Phosphorus 4.4 Magnesium 2.5 H C-Reactive Protein < 0.3 Microbiology 09/02/17 10:10 Urine - Urine Clean Catch Urine Culture - Final Escherichia Coli Esbl Lead Software Tester ASSESSMENT AND PLAN: 62 yof with PMHx of CAD s/p ?Small [place] on plavix (no reported cardiac cath or stent per patient), HTN, HLD, Morbid obesity,admitted with palpitations, abnormal EKG and lower uncomplicated UTI. -Palpitations -EKG with lateral ischemia, no prior available -ESBL UTI -Mild BLANE -New onset DM. -Morbid obesity -CAD on plavix ?prior small [place] in 2017 -HTN -HLD PLan: No events on telemetry,. ACS ruled out. Cardiology input noted. 2D echo, and stress test for tomorrow given anterolateral changes on EKG. ASA/plavix/statin/atenolol (no bisoprolol inhouse). Lipid panel noted. HOld atenolol in AM for stress test. Amlodipine/valsartan/HCTZ/clonidine for BP. s/p 3 days of ceftriaxone, urine cultures with ESBL, start ertapenem, contact isolation and ID consult. Cr noted. Monitor tomorrow, if continues to rise, renal/bladder US, no CVA tendernes or symptoms concerning for pyelonephritis currently. A1c 7.7, place on ISS, diabetic diet. Nutrition consult, diabetic teaching. Would be a good candidate for metformin once cardiac/infectious concerns resolved. Advised patient on outpatient sleep study and likely underlying CIPRIANO. DVTPPX lovenox PT eval. Dispo pending resolution of medical issues. Plan discussed with patient in detail, all questions answered.
--- NOTE | 2017-09-04 11:45 | PN ---
Physical Exam: SUBJECTIVE: Patient seen and examined at bedside. No complaints. Pt not having CP at this time. OBJECTIVE: Vital Signs Period Temp Pulse Resp BP Sys/Austin Pulse Ox Last 24 Hr 97.3 F-98.4 F 54-65 20-22 114-167/61-84 95-97 GENERAL: The patient is awake, alert, and fully oriented, in no acute distress. HEAD: Normal with no signs of trauma. EYES: sclera anicteric, conjunctiva clear. No ptosis. ENT: Ears normal, nares patent, oropharynx clear without exudates, moist mucous membranes. NECK: Trachea midline, full range of motion, supple. LUNGS: Breath sounds equal, clear to auscultation bilaterally, no wheezes, no crackles, no accessory muscle use. HEART: Regular rate and rhythm, S1, S2 without murmur, rub or gallop. ABDOMEN: Obese. Soft, nontender, nondistended, normoactive bowel sounds, no guarding, no rebound, no hepatosplenomegaly, no masses. EXTREMITIES: 2+ pulses, warm, well-perfused, 1+ edema. NEUROLOGICAL: Cranial nerves II through XII grossly intact. Normal speech, gait not observed. PSYCH: Normal mood, normal affect. SKIN: Warm, dry, normal turgor, no rashes or lesions noted Laboratory Results - last 24 hr 09/03/17 09/04/17 09/04/17 21:08 05:18 06:50 WBC 11.9 H RBC 4.87 Hgb 13.1 Hct 40.8 MCV 83.7 MCH 27.0 MCHC 32.2 RDW 16.5 H Plt Count 236 MPV 9.0 Neutrophils % 76.8 Lymphocytes % 14.3 Monocytes % 8.3 Eosinophils % 0.3 D Basophils % 0.3 Nucleated RBC % 0 ESR Sodium Potassium Chloride Carbon Dioxide Anion Gap BUN Creatinine POC Glucometer 129 125 Random Glucose Calcium Phosphorus Magnesium C-Reactive Protein 09/04/17 09/04/17 09/04/17 06:50 06:50 06:50 WBC RBC Hgb Hct MCV MCH MCHC RDW Plt Count MPV Neutrophils % Lymphocytes % Monocytes % Eosinophils % Basophils % Nucleated RBC % ESR 5 Sodium 139 Potassium 4.8 Chloride 103 Carbon Dioxide 30 Anion Gap 6 L BUN 29 H Creatinine 1.2 H POC Glucometer Random Glucose 132 H Calcium 8.8 Phosphorus 4.4 Magnesium 2.5 H C-Reactive Protein < 0.3 Active Medications Generic Name Dose Route Start Last Admin Trade Name Cliffq PRN Reason Stop Dose Admin Amlodipine Besylate 10 mg 09/03/17 10:00 09/04/17 09:06 Norvasc - PO 10 mg DAILY CORNELIO Administration Atenolol 100 mg 09/04/17 10:00 09/04/17 09:09 Tenormin - PO 100 mg DAILY CORNELIO Administration Atorvastatin Calcium 40 mg 09/02/17 22:00 09/03/17 21:09 Lipitor - PO 40 mg HS CORNELIO Administration Clonidine 0.1 mg 09/02/17 22:00 09/03/17 21:08 Catapres - PO 0.1 mg HS CORNELIO Administration Clopidogrel Bisulfate 75 mg 09/03/17 10:00 09/04/17 09:06 Plavix - PO 75 mg DAILY CORNELIO Administration Heparin Sodium (Porcine) 5,000 unit 09/02/17 22:00 09/04/17 06:12 Heparin - SQ 5,000 unit TID CORNELIO Administration Hydrochlorothiazide 25 mg 09/03/17 12:30 09/04/17 09:06 Hctz - PO 25 mg DAILY CORNELIO Administration Ertapenem 1 gm/ Sodium 50 mls @ 50 mls/hr 09/04/17 11:30 Chloride IVPB DAILY [facility] Protocol Insulin Aspart 1 vial 09/03/17 22:00 09/04/17 06:05 Novolog Vial Sliding Scale - SQ Not Given ACHS [facility] Protocol Valsartan 320 mg 09/03/17 12:01 09/04/17 09:06 Diovan - PO 320 mg DAILY CORNELIO Administration ASSESSMENT/PLAN: 62 yo F with PMHx of CAD s/p ?Small [place] in [place] on plavix (no reported cardiac cath or stent per patient), HTN, HLD, Morbid obesity, who presented to the ED complaining of palpitations. Pt was found to have abnormal EKG and lower uncomplicated UTI. Admitted for ACS w/u and UTI. #ACS neg -Trop neg x 2 -EKG with lat T wave changes -Cardio on board -2d echo -stress test: hold atenolol, NPO after midnight #CAD -Cardio on board -2d echo -stress test: hold atenolol, NPO after midnight -cont home plavix for ? [place] in 2006 -cont home lipitor #Lower uncomplicated UTI -UA with 1+ LE -UCx pos for ESBL e.coli -isolation -ID consult -switch Ceftriaxone to Ertapenem #DM -New diagnosis -A1C 7.7 -Pt made aware -ISS -BGM #HTN -Amlodipine -Valsartan -HCTZ -Catapres -Atenolol (hold for stress test tomorrow) #HLD -Lipitor #Morbid obesity -Pt counselled #FEN -not on fluid -hypermagnesemia ? 2/2 diuretics -Na controlled diet. NPO after midnight. #PPx -HSQ #Dispo -Admitted for ACS w/o & UTI Visit type - Emergency Visit Emergency Visit: No - New Patient This patient is new to me today: Yes Date on this admission: 09/04/17 - Critical Care Critical Care patient: No - Discharge Referral Referred to [facility] No
[2017-09-04] MEDS: ERTAPENEM SODIUM 1 GM in SODIUM CHLORIDE 50 ML IVPB SCH (13:06)
--- NOTE | 2017-09-04 17:26 | PN ---
Progress Note (short form) - Note Progress Note: CC: cp S: no cp, palps, dizziness, sob. Current Medications Amlodipine Besylate (Norvasc -) 10 mg PO DAILY [facility] Last Admin: 09/04/17 09:06 Dose: 10 mg Atenolol (Tenormin -) 100 mg PO DAILY [facility] Last Admin: 09/04/17 09:09 Dose: 100 mg Atorvastatin Calcium (Lipitor -) 40 mg PO HS [facility] Last Admin: 09/03/17 21:09 Dose: 40 mg Clopidogrel Bisulfate (Plavix -) 75 mg PO DAILY [facility] Last Admin: 09/04/17 09:06 Dose: 75 mg Heparin Sodium (Porcine) (Heparin -) 5,000 unit SQ TID [facility] Last Admin: 09/04/17 13:26 Dose: 5,000 unit Hydrochlorothiazide (Hctz -) 25 mg PO DAILY [facility] Last Admin: 09/04/17 09:06 Dose: 25 mg Ertapenem 1 gm/ Sodium (Chloride) 50 mls @ 50 mls/hr IVPB DAILY [facility]; Protocol Last Admin: 09/04/17 13:06 Dose: 50 mls/hr Insulin Aspart (Novolog Vial Sliding Scale -) 1 vial SQ ACHS [facility]; Protocol Last Admin: 09/04/17 17:04 Dose: Not Given Valsartan (Diovan -) 320 mg PO DAILY [facility] Last Admin: 09/04/17 09:06 Dose: 320 mg Vital Signs - 24 hr 09/03/17 09/04/17 09/04/17 20:20 01:00 05:00 Temperature 98.1 F 97.3 F L 98.4 F Pulse Rate 62 54 L 60 Respiratory 20 20 20 Rate Blood Pressure 135/73 121/64 167/84 O2 Sat by Pulse 95 Oximetry (%) 09/04/17 09/04/17 09:00 14:28 Temperature 98 F 98.2 F Pulse Rate 65 66 Respiratory 20 18 Rate Blood Pressure 147/77 144/44 O2 Sat by Pulse 97 Oximetry (%) Intake & Output 09/02/17 09/03/17 09/04/17 09/05/17 07:59 07:59 07:59 07:59 Intake Total 300 300 Balance 300 300 Weight 320 lb NAD, calm JVD flat, neck supple ctab, nl effort rrr nl s1, s2. no mrg + bs soft nt nd ext without e/c/c + dp/pt, no carotid bruits no jaundice, diaphoresis aaox3 CBC, BMP 09/04/17 06:50 09/04/17 06:50 Microbiology 09/02/17 10:10 Urine - Urine Clean Catch Urine Culture - Final Escherichia Coli Esbl Station Chief Laboratory Tests 09/02/17 09/03/17 09/04/17 10:29 07:10 06:50 ESR D-Dimer 265 Magnesium 2.5 H C-Reactive Protein Total LDL Cholesterol 82 09/04/17 09/04/17 06:50 06:50 ESR 5 D-Dimer Magnesium C-Reactive Protein < 0.3 Total LDL Cholesterol EKG: sr, 100 bpm. lvh. biphasic twaves in lateral leads. ? MS depressions EKG #2: sr, 91 bpm. slight extension of biphasic t waves in to anterolateral leads. otherwise similar tele: sr cxr: wnl 62 yo with h/o possible prior "small" PA (no intervention) - on Plavix, HTN, HL , Morbid obesity, asthma who p/w cp, hospital course notable for uti. cp/palps/hx of prior cad?/hl - currently cp free. tele benign. - esr, crp wnl. - ce's neg x 3. EKG with t-wave abnormalities. + rf's. Recommend echo and stress test. - con't medical therapy with plavix, statin, atenolol, norvasc - tele monitoring, lyte repletion prn. - hga1c elevated, dm assessment per pmd htn - still with suboptimal control. HR running low on clonidine. Will d/c clonidine and replace with hydralazine. monitor for improvement. uti: - ongoing mgm't per pmd.
[2017-09-04] MEDS: hydrALAZINE HCL 10 MG TABLET PO SCH (22:19)
[2017-09-04] MEDS: ATORVASTATIN CA 40 MG TABLET (FP) PO SCH (22:19)
[2017-09-05] MEDS: HEPARIN NA (PORCINE) 5,000 UNITS/ML 1ML VIAL SQ SCH ×3 (05:55→21:42)
[2017-09-05] MEDS: INSULIN SLIDING SCALE (NOVOLOG) 1 VIAL SQ SCH ×4 (06:33→21:44)
[2017-09-05] MEDS: ERTAPENEM SODIUM 1 GM in SODIUM CHLORIDE 50 ML IVPB SCH (09:06)
[2017-09-05] MEDS: hydrALAZINE HCL 10 MG TABLET PO SCH ×3 (09:17→21:41)
[2017-09-05] MEDS: CLOPIDOGREL BISULFATE 75 MG TABLET (FP) PO SCH ×2 (09:18→14:10)
[2017-09-05] MEDS: HYDROCHLOROTHIAZIDE 25 MG TABLET (FP) PO SCH ×2 (09:18→14:11)
[2017-09-05] MEDS: VALSARTAN 160 MG TABLET (UD) PO SCH ×2 (09:18→14:10)
[2017-09-05] MEDS ORDERED: REGADENOSON 0.4 MG/5 ML PRE-FILLED SYRINGE IVPUSH ONE (09:30)
--- NOTE | 2017-09-05 12:47 | PN ---
Physical Exam: SUBJECTIVE: Patient seen and examined at bedside. No complaints at this time. Pt feels well. Tele benign. No acute events. OBJECTIVE: Vital Signs Period Temp Pulse Resp BP Sys/Austin Pulse Ox Last 24 Hr 97.9 F-98.2 F 54-67 18-20 140-164/44-90 96-97 GENERAL: The patient is awake, alert, and fully oriented, in no acute distress. HEAD: Normal with no signs of trauma. EYES: sclera anicteric, conjunctiva clear. No ptosis. ENT: oropharynx clear without exudates, moist mucous membranes. NECK: Trachea midline, full range of motion, supple. LUNGS: Breath sounds equal, clear to auscultation bilaterally, no wheezes, no crackles, no accessory muscle use. HEART: Regular rate and rhythm, S1, S2 without murmur, rub or gallop. ABDOMEN: Obese. Soft, nontender, nondistended, normoactive bowel sounds, no guarding, no rebound, no hepatosplenomegaly, no masses. EXTREMITIES: 2+ pulses, warm, well-perfused, 1+ edema. NEUROLOGICAL: Normal speech, gait not observed. PSYCH: Normal mood, normal affect. SKIN: Warm, dry, normal turgor, no rashes or lesions noted Laboratory Results - last 24 hr 09/04/17 09/04/17 09/05/17 17:04 21:30 06:32 POC Glucometer 120 151 124 Active Medications Generic Name Dose Route Start Last Admin Trade Name Freq PRN Reason Stop Dose Admin Amlodipine Besylate 10 mg 09/03/17 10:00 09/04/17 09:06 Norvasc - PO 10 mg DAILY CORNELIO Administration Atenolol 100 mg 09/04/17 10:09/04/17 09:09 Tenormin - PO 100 mg DAILY CORNELIO Administration Atorvastatin Calcium 40 mg 09/02/17 22:00 09/04/17 22:19 Lipitor - PO 40 mg HS CORNELIO Administration Clopidogrel Bisulfate 75 mg 09/03/17 10:00 09/05/17 09:18 Plavix - PO Not Given DAILY CORNELIO Heparin Sodium (Porcine) 5,000 unit 09/02/17 22:00 09/05/17 05:55 Heparin - SQ 5,000 unit TID CORNELIO Administration Hydralazine HCl 10 mg 09/04/17 22:00 09/05/17 09:17 Apresoline - PO Not Given BID CORNELIO Hydrochlorothiazide 25 mg 09/03/17 12:30 09/05/17 09:18 Hctz - PO Not Given DAILY CORNELIO Ertapenem 1 gm/ Sodium 50 mls @ 50 mls/hr 09/04/17 12:00 09/05/17 09:06 Chloride IVPB 50 mls/hr DAILY CORNELIO Administration Protocol Insulin Aspart 1 vial 09/03/17 22:00 09/05/17 11:45 Novolog Vial Sliding Scale - SQ Not Given ACHS CORNELIO Protocol Valsartan 320 mg 09/03/17 12:01 09/05/17 09:18 Diovan - PO Not Given DAILY CORNELIO ASSESSMENT/PLAN: 62 yo F with PMHx of CAD s/p ?Small [place] in [place] on plavix (no reported cardiac cath or stent per patient), HTN, HLD, Morbid obesity, who presented to the ED complaining of palpitations. Pt was found to have abnormal EKG and lower uncomplicated UTI. Admitted for ACS w/u and UTI. #ACS neg -Trop neg x 2 -multiple EKGs with lat T wave changes -Cardio on board -f/u 2d echo -f/u stress test #CAD -Cardio on board -2d echo -f/u stress test -cont home plavix for ? [place] in 2006 -cont home lipitor #Lower uncomplicated UTI -UA with 1+ LE -UCx pos for ESBL e.coli -isolation -ID consult. f/u recs -on Ertapenem #DM -New diagnosis this admission -A1C 7.7 -Pt made aware and counselled on diet, exercise, and medication -[employer] consult -ISS -BGM #HTN -Amlodipine -Valsartan -HCTZ -Catapres switched to hydralazine by Cards -Atenolol (hold for stress test) #HLD -Lipitor #Morbid obesity -Pt counselled #FEN -not on fluid -hypermagnesemia ? 2/2 diuretics -resume Na controlled diet after stress test #PPx -HSQ #Dispo -Admitted for ACS w/o & UTI Cory Farmer MD PGY-1 IM Visit type - Emergency Visit Emergency Visit: No - New Patient This patient is new to me today: No - Critical Care Critical Care patient: No - Discharge Referral Referred to [facility] Med P.C.: No
--- NOTE | 2017-09-05 13:17 | PN ---
Teaching Attending Note Name of Resident: Cory Farmer ATTENDING PHYSICIAN STATEMENT I saw and evaluated the patient. I reviewed the resident's note and discussed the case with the resident. I agree with the resident's findings and plan as documented. SUBJECTIVE:asymptomatic. denies CP, SOB, fever, chills, N/V/C/D OBJECTIVE: Last Vital Signs Temp Pulse Resp BP Pulse Ox 98 F 64 18 164/90 97 09/05/17 10:00 09/05/17 10:00 09/05/17 10:00 09/05/17 10:00 09/05/17 09:00 General NAD CV S1 S2 RRR no murmur/rub/gallop Lungs CTA B/L no wheezing/rales/rhonchi abdomen soft NT/ND obese ASSESSMENT AND PLAN: 62 yof with PMHx of CAD s/p ?Small [place] on plavix (no reported cardiac cath or stent per patient), HTN, HLD, Morbid obesity,admitted with palpitations, abnormal EKG and lower uncomplicated UTI. 1. Palpitations- no event on monitor. cardiac markers negative. due to EKG changes. echo and NMST done today. will f/u results cardio on board 2. EKG with lateral ischemia, no prior available 3. ESBL UTI- was initially on ceftriaxone and now switched to ERtapenem day 2. contact precautions. ID consulted 4. Mild BLANE- no labs today. will repeat 5. New onset DM- A1c 7.7. sugars controlled with sliding scale. can d/c on metformin. educated on risks assoc iwth DM and need for diet and medication compliance. nutritional eval 6. Morbid obesity- BMI 48.7 7. CAD on plavix ?prior small [place] in 2017 8. HTN- elevated today but some medications were held. will monitor and adjust as needed 9. HLD- statin 10. DVT ppx- lovenox 11. spoke with son present at bedside. should have polysomography as outpatient due to high risk factors 12. can d/c cardiac monitoring pending results of stress test.
--- NOTE | 2017-09-05 16:54 | PN ---
Progress Note, Physician Chief Complaint: cp History of Present Illness: no more cp no sob, palpitations, syncope - Current Medication List Current Medications: Active Medications Amlodipine Besylate (Norvasc -) 10 mg PO DAILY [facility] Last Admin: 09/04/17 09:06 Dose: 10 mg Atenolol (Tenormin -) 100 mg PO DAILY [facility] Last Admin: 09/04/17 09:09 Dose: 100 mg Atorvastatin Calcium (Lipitor -) 40 mg PO HS [facility] Last Admin: 09/04/17 22:19 Dose: 40 mg Clopidogrel Bisulfate (Plavix -) 75 mg PO DAILY [facility] Last Admin: 09/05/17 14:10 Dose: 75 mg Heparin Sodium (Porcine) (Heparin -) 5,000 unit SQ TID [facility] Last Admin: 09/05/17 14:09 Dose: 5,000 unit Hydralazine HCl (Apresoline -) 10 mg PO BID [facility] Last Admin: 09/05/17 14:09 Dose: 10 mg Hydrochlorothiazide (Hctz -) 25 mg PO DAILY [facility] Last Admin: 09/05/17 14:11 Dose: 25 mg Ertapenem 1 gm/ Sodium (Chloride) 50 mls @ 50 mls/hr IVPB DAILY [facility]; Protocol Last Admin: 09/05/17 09:06 Dose: 50 mls/hr Insulin Aspart (Novolog Vial Sliding Scale -) 1 vial SQ ACHS [facility]; Protocol Last Admin: 09/05/17 11:45 Dose: Not Given Valsartan (Diovan -) 320 mg PO DAILY [facility] Last Admin: 09/05/17 14:10 Dose: 320 mg - Objective Vital Signs: Vital Signs Temperature 98.3 F 09/05/17 14:00 Pulse Rate 86 09/05/17 14:00 Respiratory Rate 18 09/05/17 14:00 Blood Pressure 138/87 09/05/17 14:00 O2 Sat by Pulse Oximetry (%) 97 09/05/17 09:00 Constitutional: Yes: No Distress, Calm, Obese Cardiovascular: Yes: Regular Rate and Rhythm, S1, S2. No: Gallop, Murmur Respiratory: Yes: Regular, CTA Bilaterally. No: Accessory Muscle Use, Rales, Wheezes Extremities: No: Cold Edema: No Neurological: Yes: Alert. No: Seizure Psychiatric: No: Agitated Labs: CBC, BMP 09/04/17 06:50 09/04/17 06:50 INR, PTT INR 1.01 (0.82-1.09) 09/02/17 10:29 Assessment/Plan EKG: sr, 100 bpm. lvh. biphasic twaves in lateral leads. ? [place] depressions EKG #2: sr, 91 bpm. slight extension of biphasic t waves in to anterolateral leads. otherwise similar cxr: wnl MPI 09/05/17 ([place]): no STs. small, mild-moderate defect basal to mid inferolateral wall is partially reversible. normal wall motion. likely diaphragmatic attenuation artict however cannot rule out mild ischemis in this territory. nl EF 56%. Echo 09/05/17: TDS. nl LV/EF. nl RV. valves WNL 62 yo with h/o possible prior "small" [place] (no intervention) - on Plavix, HTN, HL , Morbid obesity, asthma who p/w cp, hospital course notable for uti. cp/palps/possible hx of prior cad: - very atypical cp sx's, non-anginal description ('breeze like feeling over my chest', non-exertional, transient with self resolution) - clinically stable in hospital - nonspecific T wave abnormalities on ekg. no sigs ACS (ecg not dynamic here, enzymes neg x3) - nuclear stress test with no high risk findings--all in all is c/w soft tissue attenuation vs low risk, small area of mild inferolat ischemia - con't anti-[place] therapy with plavix, statin, atenolol, norvasc as doing - sx's highly unlikely to represent angina--would not add ranexa or nitrates at this time - outpt cardio f/u appropriate (has a doctor, per family at bedside) - echo WNL, nl EF htn - bp reasonably controlled (mostly 130s-40s) presently. - clonidine replaced with hydralazine here for hi bp's - same meds, outpt bp f/u uti: - ongoing mgm't per pmd NO FURTHER CV W/U INDICATED--D/C TELE
[2017-09-05] MEDS: ATORVASTATIN CA 40 MG TABLET (FP) PO SCH (21:42)
[2017-09-06] MEDS: HEPARIN NA (PORCINE) 5,000 UNITS/ML 1ML VIAL SQ SCH ×3 (06:19→22:53)
[2017-09-06] MEDS: INSULIN SLIDING SCALE (NOVOLOG) 1 VIAL SQ SCH ×4 (06:20→22:55)
--- NOTE | 2017-09-06 07:21 | PN ---
Physical Exam: SUBJECTIVE: Patient seen and examined at bedside. Expressed concern about her ESBL. Comfortable. During interview, pt took on a saddened affect. When asked, she admitted to feeling depressed recently about her children and a family illness. She stated she has been seeing a psychiatrist as part of her routine workup for bariatric surgery. She was advised to raise her issues with that physician. No other complaints. OBJECTIVE: Vital Signs Period Temp Pulse Resp BP Sys/Austin Pulse Ox Last 24 Hr 97.6 F-98.3 F 64-88 18-20 127-164/71-90 94-94 GENERAL: The patient is awake, alert, and fully oriented, in no acute distress. HEAD: Normal with no signs of trauma. EYES: sclera anicteric, conjunctiva clear. No ptosis. ENT: oropharynx clear without exudates, moist mucous membranes. NECK: Trachea midline, full range of motion, supple. LUNGS: Breath sounds equal, clear to auscultation bilaterally, no wheezes, no crackles, no accessory muscle use. HEART: Regular rate and rhythm, S1, S2 with soft 2/6 systolic murmur at RUSB, rub or gallop. ABDOMEN: Obese. Soft, nontender, nondistended, normoactive bowel sounds, no guarding, no rebound, no hepatosplenomegaly, no masses. EXTREMITIES: 2+ pulses, warm, well-perfused, 1+ edema. NEUROLOGICAL: Normal speech, gait not observed. PSYCH: Normal mood, normal affect. SKIN: Warm, dry, normal turgor, no rashes or lesions noted Laboratory Results - last 24 hr 09/05/17 09/05/17 09/06/17 16:55 21:43 06:18 POC Glucometer 122 136 127 Active Medications Generic Name Dose Route Start Last Admin Trade Name Freq PRN Reason Stop Dose Admin Amlodipine Besylate 10 mg 09/03/17 10:09/04/17 09:06 Norvasc - PO 10 mg DAILY CORNELIO Administration Atenolol 100 mg 09/04/17 10:09/04/17 09:09 Tenormin - PO 100 mg DAILY CORNELIO Administration Atorvastatin Calcium 40 mg 09/02/17 22:00 09/05/17 21:42 Lipitor - PO 40 mg HS CORNELIO Administration Clopidogrel Bisulfate 75 mg 09/03/17 10:00 09/05/17 14:10 Plavix - PO 75 mg DAILY CORNELIO Administration Heparin Sodium (Porcine) 5,000 unit 09/02/17 22:00 09/06/17 06:19 Heparin - SQ 5,000 unit TID CORNELIO Administration Hydralazine HCl 10 mg 09/04/17 22:00 09/05/17 21:41 Apresoline - PO 10 mg BID CORNELIO Administration Hydrochlorothiazide 25 mg 09/03/17 12:30 09/05/17 14:11 Hctz - PO 25 mg DAILY CORNELIO Administration Ertapenem 1 gm/ Sodium 50 mls @ 50 mls/hr 09/04/17 12:00 09/05/17 09:06 Chloride IVPB 50 mls/hr DAILY CORNELIO Administration Protocol Insulin Aspart 1 vial 09/03/17 22:00 09/06/17 06:20 Novolog Vial Sliding Scale - SQ Not Given ACHS CORNELIO Protocol Valsartan 320 mg 09/03/17 12:01 09/05/17 14:10 Diovan - PO 320 mg DAILY CORNELIO Administration ASSESSMENT/PLAN: 62 yo F with PMHx of CAD s/p ?Small [place] in [place] on plavix (no reported cardiac cath or stent per patient), HTN, HLD, Morbid obesity, who presented to the ED complaining of palpitations. Pt was found to have abnormal EKG and lower uncomplicated UTI. Admitted for ACS w/u and UTI. #ACS neg -Trop neg x 2 -multiple EKGs with lat T wave changes -Cardio on board -2d echo Grade I diastolic dysfunction -stress test - mild to moderate inferolat reversible defect. #CAD -Cardio on board -2d echo Grade I diastolic dysfunction -stress test - mild to moderate inferolat reversible defect. -cont home plavix for ? [place] in 2006 -cont home lipitor -will f/u out pt #Lower uncomplicated UTI -UA with 1+ LE -UCx pos for ESBL e.coli -isolation -ID consult. f/u recs -on Ertapenem -f/u bladder, renal U/S #DM -New diagnosis this admission -A1C 7.7 -Pt made aware and counselled on diet, exercise, and medication -[employer] Guide consult -ISS. Has not been requiring consistently -BGM #HTN - well controlled -Amlodipine -Valsartan -HCTZ -Catapres switched to hydralazine by Cards -Atenolol (hold for stress test) #HLD -Lipitor #Morbid obesity -Pt counselled -has been completing pre-op clearance for bariatric surg #?Depression -seeing psych out pt as part of bariatric pre-op #FEN -not on fluid -hypermagnesemia ? 2/2 diuretics -resume [place] controlled diet after stress test #PPx -HSQ #Dispo -Admitted for ACS w/o & UTI Cory Farmer MD PGY-1 IM Visit type - Emergency Visit Emergency Visit: No - New Patient This patient is new to me today: No - Critical Care Critical Care patient: No - Discharge Referral Referred to [facility] Med P.C.: No
[2017-09-06 07:25] LABS: BASO % 0.5 % (0-2.0); EOS % 0.9 % (0-4.5); HEMATOCRIT 42.3 % (32.4-45.2); HEMOGLOBIN 13.6 GM/dL (10.7-15.3); LYMPH % 13.6 % (8-40); MCH 27.2 pg (25.7-33.7); MCHC 32.3 g/dl (32.0-36.0); MEAN CELL VOLUME 84.2 fl (80-96); MEAN PLT VOLUME 9.3 fl (7.5-11.1); MONO % 6.8 % (3.8-10.2); NEUT % 78.2 % (42.8-82.8); PLATELET COUNT 263 K/MM3 (134-434); RBC 5.02 M/mm3 (3.60-5.2); RDW 16.3 % (11.6-15.6); WHITE BLOOD COUNT 14.5 K/mm3 (4.0-10.0)
[2017-09-06 07:49] LABS: CHLORIDE 103 mmol/L (98-107); POTASSIUM 4.6 mmol/L (3.5-5.1); SODIUM 139 mmol/L (136-145)
[2017-09-06 08:03] LABS: ALK PHOS 112 U/L (45-117); ANION GAP 7 (8-16); BILIRUBIN,TOTAL 0.8 mg/dL (0.2-1.0); BLOOD UREA NITROGEN 33 mg/dL (7-18); CO2 29 mmol/L (21-32); CREATININE 1.2 mg/dL (0.55-1.02); GLUCOSE,RANDOM 128 mg/dL (74-106); MAGNESIUM 2.5 mg/dL (1.8-2.4); PHOSPHOROUS 4.4 mg/dL (2.5-4.9); SGOT/AST 30 U/L (15-37); SGPT/ALT 46 U/L (12-78); TOT PROT 7.3 g/dl (6.4-8.2)
[2017-09-06] MEDS ORDERED: PT OWN MED DRAWER 7, Y5N ONE (08:49)
[2017-09-06] MEDS: ATENOLOL 50 MG TABLET (FP) PO SCH (09:21)
[2017-09-06] MEDS: VALSARTAN 160 MG TABLET (UD) PO SCH (09:21)
[2017-09-06] MEDS: hydrALAZINE HCL 10 MG TABLET PO SCH ×2 (09:21→22:53)
[2017-09-06] MEDS: HYDROCHLOROTHIAZIDE 25 MG TABLET (FP) PO SCH (09:21)
[2017-09-06] MEDS: amLODIPine BESYLATE 10 MG TABLET (FP) PO SCH (09:21)
[2017-09-06] MEDS: CLOPIDOGREL BISULFATE 75 MG TABLET (FP) PO SCH (09:21)
--- NOTE | 2017-09-06 10:18 | PN ---
Progress Note (short form) - Note Progress Note: ID consult dictated imp/reccd 62 year old female admitted with palplitations and chest discomfort noted to have elevated wbc of 13k and pyuria started on rocephin and switch ed to ertapenem 09/04 no fevers no chills in the [place] for last 7 months history of hernia repair in [place] has had oopherectomy too? ?pessary given persistent leukocytosis would continue ertapenem and obtain sonogram bladder/kidneys d/w hospitalist service Problem List - Problems (1) Leukocytosis Code(s): D72.829 - ELEVATED WHITE BLOOD CELL COUNT, UNSPECIFIED (2) UTI (urinary tract infection) Code(s): N39.0 - URINARY TRACT INFECTION, SITE NOT SPECIFIED Qualifiers: Urinary tract infection type: site unspecified Hematuria presence: without hematuria Qualified Code(s): N39.0 - Urinary tract infection, site not specified (3) ESBL E. coli carrier Code(s): Z22.39 - CARRIER OF OTHER SPECIFIED BACTERIAL DISEASES
--- NOTE | 2017-09-06 11:06 | CONS ---
DATE OF CONSULTATION: DATE OF DICTATION: 09/06/2017 REQUESTED BY: The hospitalist service. HISTORY OF PRESENT ILLNESS: This is a 62-year-old female who was admitted with palpitations and chest discomfort on September 02 to rule out coronary artery disease. She was noted in the emergency room to have no fever but a white count of 13.3. She was noted to have white cells in her urine with 1+ leukocyte esterase and she was started on ceftriaxone for possible UTI. She is originally from [place]. She has been in this country for 7 months. Her urine culture came back E coli ESBL oil producer and she was switched to ertapenem on September 04. Asked to see her for further recommendations. She is resting comfortably. She has no chest pain or discomfort. PAST MEDICAL HISTORY: Notable for a history of hypertension, hyperlipidemia, IA, obesity. She reports she has had UTIs in the past in [place]. She has a history of hernia repair, hysterectomy and cholecystectomy. She reports she has had her ovaries removed as well. She describes something which is perhaps a pessary. FAMILY HISTORY: Unremarkable. ALLERGIES: She has no known drug allergies. MEDICATIONS: At home include amlodipine, Lipitor, bisoprolol, clonidine, Plavix, valsartan, hydrochlorothiazide. SOCIAL HISTORY: There is no history of any cigarette, alcohol or substance use. She is living here with her family. REVIEW OF SYSTEMS: She denies any dysuria. She denies currently any chest pain. She has no back pain. She denies any history of kidney stones. PHYSICAL EXAMINATION:General: She is awake and alert. Vital Signs: She weighs 320 pounds, temperature of 98, blood pressure 161/82, pulse of 71, respiratory rate is 20. HEENT: She is normocephalic. Her eyes are anicteric. Neck: Supple. Lungs: Clear to auscultation. Heart: Regular rate and rhythm. Abdomen: Soft and nontender. She has no suprapubic or CVA tenderness. Extremities: Without edema. LABORATORY DATA: White count today is 14.5, hemoglobin is 13.6, platelets are 263. BUN is 33 and creatinine is 1.2. Urinalysis: As stated before 2+ blood, 1+ leukocyte esterase with 20 white cells and 19 red cells. ASSESSMENT: In summary this is a 62-year-old lady with persistent leukocytosis. Given this would continue her ertapenem and treat her for her UTI. Would obtain some imaging with at least to start with a bladder and kidney sonogram. Would maintain contact isolation as well. Hopefully more history can be obtained when the daughter comes. Case was discussed with the hospitalist service. MABLE ROBERTO M.D. FEDE/[id number]
--- NOTE | 2017-09-06 11:13 | PN ---
Progress Note (short form) - Note Progress Note: cp History of Present Illness: no more cp no sob, palpitations, syncope - Current Medication List Current Medications Generic Name Dose Route Start Last Admin Trade Name [place]anta PRN Reason Stop Dose Admin Amlodipine Besylate 10 mg 09/03/17 10:00 09/06/17 09:21 Norvasc - PO 10 mg DAILY CORNELIO Administration Atenolol 100 mg 09/04/17 10:00 09/06/17 09:21 Tenormin - PO 100 mg DAILY CORNELIO Administration Atorvastatin Calcium 40 mg 09/02/17 22:00 09/05/17 21:42 Lipitor - PO 40 mg HS CORNELIO Administration Clopidogrel Bisulfate 75 mg 09/03/17 10:00 09/06/17 09:21 Plavix - PO 75 mg DAILY CORNELIO Administration Heparin Sodium (Porcine) 5,000 unit 09/02/17 22:00 09/06/17 06:19 Heparin - SQ 5,000 unit TID CORNELIO Administration Hydralazine HCl 10 mg 09/04/17 22:00 09/06/17 09:21 Apresoline - PO 10 mg BID CORNELIO Administration Hydrochlorothiazide 25 mg 09/03/17 12:30 09/06/17 09:21 Hctz - PO 25 mg DAILY CORNELIO Administration Ertapenem 1 gm/ Sodium 50 mls @ 50 mls/hr 09/04/17 12:00 09/05/17 09:06 Chloride IVPB 50 mls/hr DAILY CORNELIO Administration Protocol Insulin Aspart 1 vial 09/03/17 22:00 09/06/17 06:20 Novolog Vial Sliding Scale - SQ Not Given ACHS [facility] Protocol Valsartan 320 mg 09/03/17 12:01 09/06/17 09:21 Diovan - PO 320 mg DAILY CORNELIO Administration - Objective Vital Signs: Vital Signs Period Temp Pulse Resp BP Sys/Austin Pulse Ox Last 24 Hr 97.6 F-98.3 F 66-88 18-20 127-161/71-87 94 Constitutional: Yes: No Distress, Calm, Obese Cardiovascular: Yes: Regular Rate and Rhythm, S1, S2. No: Gallop, Murmur Respiratory: Yes: Regular, CTA Bilaterally. No: Accessory Muscle Use, Rales, Wheezes Extremities: No: Cold Edema: No Neurological: Yes: Alert. No: Seizure Psychiatric: No: Agitated Labs: CBC, BMP 09/06/17 06:30 09/06/17 06:30 Assessment/Plan EKG: sr, 100 bpm. lvh. biphasic twaves in lateral leads. ? [place] depressions EKG #2: sr, 91 bpm. slight extension of biphasic t waves in to anterolateral leads. otherwise similar cxr: wnl MPI 09/05/17 ([place]): no STs. small, mild-moderate defect basal to mid inferolateral wall is partially reversible. normal wall motion. likely diaphragmatic attenuation artict however cannot rule out mild ischemis in this territory. nl EF 56%. Echo 09/05/17: TDS. nl LV/EF. nl RV. valves WNL a/p: 62 yo with h/o possible prior "small" [place] (no intervention) - on Plavix, HTN, HL, Morbid obesity, asthma who p/w cp, hospital course notable for uti. cp/palps/possible hx of prior cad: - very atypical cp sx's, non-anginal description ('breeze like feeling over my chest', non-exertional, transient with self resolution) - clinically stable in hospital - nonspecific T wave abnormalities on ekg. no sigs ACS (ecg not dynamic here, enzymes neg x3) - nuclear stress test with no high risk findings--all in all is c/w soft tissue attenuation vs low risk, small area of mild inferolat ischemia - con't anti-[place] therapy with plavix, statin, atenolol, norvasc as doing - sx's highly unlikely to represent angina--would not add ranexa or nitrates at this time - outpt cardio f/u appropriate (has a doctor, per family at bedside) - echo WNL, nl EF htn - bp reasonably controlled (mostly 130s-40s) presently. - clonidine replaced with hydralazine here for hi bp's - same meds, outpt bp f/u uti: - ongoing mgm't per pmd cardiac mcdonnell remains stable
[2017-09-06] MEDS: ERTAPENEM SODIUM 1 GM in SODIUM CHLORIDE 50 ML IVPB SCH (11:19)
--- NOTE | 2017-09-06 11:48 | PN ---
Teaching Attending Note Name of Resident: Cory Farmer ATTENDING PHYSICIAN STATEMENT I saw and evaluated the patient. I reviewed the resident's note and discussed the case with the resident. I agree with the resident's findings and plan as documented. SUBJECTIVE:asymptomatic. denies CP, SOB, fever, chills, N/V/C/D had hernia repair in [place] where they put something there and left it. OBJECTIVE: Last Vital Signs Temp Pulse Resp BP Pulse Ox 98.0 F 71 20 161/82 94 L 09/06/17 05:31 09/06/17 05:31 09/06/17 05:09/06/17 05:09/05/17 21:00 General NAD abdomen soft NT/ND obese ASSESSMENT AND PLAN: 62 yof with PMHx of CAD s/p ?Small [place] on plavix (no reported cardiac cath or stent per patient), HTN, HLD, Morbid obesity,admitted with palpitations, abnormal EKG and lower uncomplicated UTI. 1. Palpitations- no event on monitor. cardiac markers negative. due to EKG changes. echo and NMST done. medical management. 2. EKG with lateral ischemia, no prior available 3. ESBL UTI- leukocytosis trending up. states she had hernia surgery with mesh left behind. will need to speak with family to evaluate what was done. will obtain kidney and bladder u/s to evlaute. cont ERtapenem day 3. contact precautions. ID consulted 4. Mild BLANE-elevated but stable. f/u renal u/s. 5. New onset DM- A1c 7.7. sugars controlled with sliding scale. can d/c on metformin. educated on risks assoc iwth DM and need for diet and medication compliance. nutritional eval 6. Morbid obesity- BMI 48.7 7. CAD on plavix ?prior small [place] in 2017 8. HTN- clonidine switched to hydralazine. monitor for improvement 9. HLD- statin 10. DVT ppx- lovenox
[2017-09-06] MEDS: ATORVASTATIN CA 40 MG TABLET (FP) PO SCH (22:53)
[2017-09-07] MEDS: HEPARIN NA (PORCINE) 5,000 UNITS/ML 1ML VIAL SQ SCH ×3 (05:35→21:17)
[2017-09-07] MEDS: INSULIN SLIDING SCALE (NOVOLOG) 1 VIAL SQ SCH ×4 (06:08→21:17)
--- NOTE | 2017-09-07 06:57 | PN ---
Physical Exam: SUBJECTIVE: Patient seen and examined at bedside. No acute events. No complaints at this time. Pt is comfortable. Daughter: Ike [phone] OBJECTIVE: Vital Signs Period Temp Pulse Resp BP Sys/Austin Pulse Ox Last 24 Hr 97.7 F-98.8 F 57-73 16-20 135-180/64-88 95-98 Gen: Comfortable ,no distress HEENT: NCAT, moist membranes Neck: No JVD, supple Cor: RRR normal S1, S2, no murmurs, rubs, gallops Pulm: CTA b/l Abd: Obese, soft, nontender, no organomegally Extremities: 1+ edema Laboratory Results - last 24 hr 09/06/17 09/06/17 09/06/17 06:30 06:30 11:22 WBC 14.5 H RBC 5.02 Hgb 13.6 Hct 42.3 MCV 84.2 MCH 27.2 MCHC 32.3 RDW 16.3 H Plt Count 263 MPV 9.3 Neutrophils % 78.2 Lymphocytes % 13.6 Monocytes % 6.8 Eosinophils % 0.9 D Basophils % 0.5 Nucleated RBC % 0 Sodium 139 Potassium 4.6 Chloride 103 Carbon Dioxide 29 Anion Gap 7 L BUN 33 H Creatinine 1.2 H Creat Clearance w eGFR 45.67 POC Glucometer 141 Random Glucose 128 H Calcium 9.0 Phosphorus 4.4 Magnesium 2.5 H Total Bilirubin 0.8 D AST 30 ALT 46 Alkaline Phosphatase 112 Total Protein 7.3 Albumin 4.0 09/06/17 09/06/17 09/07/17 16:40 22:51 05:37 WBC RBC Hgb Hct MCV MCH MCHC RDW Plt Count MPV Neutrophils % Lymphocytes % Monocytes % Eosinophils % Basophils % Nucleated RBC % Sodium Potassium Chloride Carbon Dioxide Anion Gap BUN Creatinine Creat Clearance w eGFR POC Glucometer 137 137 115 Random Glucose Calcium Phosphorus Magnesium Total Bilirubin AST ALT Alkaline Phosphatase Total Protein Albumin Active Medications Generic Name Dose Route Start Last Admin Trade Name Freq PRN Reason Stop Dose Admin Amlodipine Besylate 10 mg 09/03/17 10:00 09/06/17 09:21 Norvasc - PO 10 mg DAILY [facility] Administration Atenolol 100 mg 09/04/17 10:00 09/06/17 09:21 Tenormin - PO 100 mg DAILY [facility] Administration Atorvastatin Calcium 40 mg 09/02/17 22:00 09/06/17 22:53 Lipitor - PO 40 mg HS [facility] Administration Clopidogrel Bisulfate 75 mg 09/03/17 10:00 09/06/17 09:21 Plavix - PO 75 mg DAILY [facility] Administration Heparin Sodium (Porcine) 5,000 unit 09/02/17 22:00 09/07/17 05:35 Heparin - SQ 5,000 unit TID [facility] Administration Hydralazine HCl 10 mg 09/04/17 22:00 09/06/17 22:53 Apresoline - PO 10 mg BID [facility] Administration Hydrochlorothiazide 25 mg 09/03/17 12:30 09/06/17 09:21 Hctz - PO 25 mg DAILY [facility] Administration Ertapenem 1 gm/ Sodium 50 mls @ 50 mls/hr 09/04/17 12:00 09/06/17 11:19 Chloride IVPB 50 mls/hr DAILY [facility] Administration Protocol Insulin Aspart 1 vial 09/03/17 22:00 09/07/17 06:08 Novolog Vial Sliding Scale - SQ Not Given ACHS [facility] Protocol Valsartan 320 mg 09/03/17 12:01 09/06/17 09:21 Diovan - PO 320 mg DAILY [facility] Administration ASSESSMENT/PLAN: 62 yo F with PMHx of CAD s/p ?Small [place] in [place] on plavix (no reported cardiac cath or stent per patient), HTN, HLD, Morbid obesity, who presented to the ED complaining of palpitations. Pt was found to have abnormal EKG and lower uncomplicated UTI. Admitted for ACS w/u and UTI. #Lower UTI -UA with 1+ LE -UCx pos for ESBL e.coli -isolation -ID consult: pt may need to go home on Macrobid -on Ertapenem -largely unremarkable. Possible surgical history noted. no hydro. no stones -per family, pt had a pessary/mesh placed many years ago -REGULATORY AUDITOR consult to assess possibility of infected pessary/mesh #ACS neg -Trop neg x 2 -multiple EKGs with lat T wave changes -Cardio on board -2d echo Grade I diastolic dysfunction -stress test - mild to moderate inferolat reversible defect. #CAD -Cardio on board -2d echo Grade I diastolic dysfunction -stress test - mild to moderate inferolat reversible defect. -cont home plavix for ? NH in 2006 -cont home lipitor -will f/u out pt #DM -New diagnosis this admission -A1C 7.7 -Pt made aware and counselled on diet, exercise, and medication -Pediatric Np consult -ISS. Has not been requiring consistently -BGM #HTN - well controlled -Amlodipine -Valsartan -HCTZ -Catapres switched to hydralazine by Cards -Atenolol #HLD -Lipitor #Morbid obesity -Pt counselled -has been completing pre-op clearance for bariatric surg #?Depression -seeing psych out pt as part of bariatric pre-op #FEN -not on fluid -hypermagnesemia ? 2/2 diuretics -resume Na controlled diet after stress test #PPx -HSQ #Dispo -Admitted for ACS w/o & UTI Cory Farmer MD PGY-1 IM Visit type - Emergency Visit Emergency Visit: No - New Patient This patient is new to me today: No - Critical Care Critical Care patient: No - Discharge Referral Referred to [facility] Med P.C.: No
[2017-09-07 07:55] LABS: ALBUMIN 3.9 g/dl (3.4-5.0); ANION GAP 7 (8-16); BILIRUBIN,TOTAL 0.8 mg/dL (0.2-1.0); CALCIUM 9.2 mg/dL (8.5-10.1); CHLORIDE 105 mmol/L (98-107); CO2 27 mmol/L (21-32); CREATININE 1.1 mg/dL (0.55-1.02); GLUCOSE,RANDOM 115 mg/dL (74-106); SGPT/ALT 57 U/L (12-78); SODIUM 139 mmol/L (136-145); TOT PROT 7.3 g/dl (6.4-8.2)
[2017-09-07 07:56] LABS: ALK PHOS 120 U/L (45-117); BASO % 1.3 % (0-2.0); EOS % 1.8 % (0-4.5); HEMATOCRIT 43.9 % (32.4-45.2); HEMOGLOBIN 14.1 GM/dL (10.7-15.3); LYMPH % 16.5 % (8-40); MCH 27.1 pg (25.7-33.7); MCHC 32.1 g/dl (32.0-36.0); MEAN CELL VOLUME 84.6 fl (80-96); MEAN PLT VOLUME 9.6 fl (7.5-11.1); MONO % 7.9 % (3.8-10.2); NEUT % 72.5 % (42.8-82.8); PLATELET COUNT 277 K/MM3 (134-434); WHITE BLOOD COUNT 15.1 K/mm3 (4.0-10.0)
[2017-09-07 08:01] LABS: BLOOD UREA NITROGEN 40 mg/dL (7-18)
[2017-09-07 08:11] LABS: POTASSIUM 5.2 mmol/L (3.5-5.1); SGOT/AST 45 U/L (15-37)
--- NOTE | 2017-09-07 10:10 | PN ---
Progress Note (short form) - Note Progress Note: cp History of Present Illness: no more cp no sob, palpitations, syncope - Current Medication List Current Medications Generic Name Dose Route Start Last Admin Trade Name Fanta PRN Reason Stop Dose Admin Amlodipine Besylate 10 mg 09/03/17 10:00 09/06/17 09:21 Norvasc - PO 10 mg DAILY [facility] Administration Atenolol 100 mg 09/04/17 10:00 09/06/17 09:21 Tenormin - PO 100 mg DAILY [facility] Administration Atorvastatin Calcium 40 mg 09/02/17 22:00 09/06/17 22:53 Lipitor - PO 40 mg HS [facility] Administration Clopidogrel Bisulfate 75 mg 09/03/17 10:00 09/06/17 09:21 Plavix - PO 75 mg DAILY [facility] Administration Heparin Sodium (Porcine) 5,000 unit 09/02/17 22:00 09/07/17 05:35 Heparin - SQ 5,000 unit TID [facility] Administration Hydralazine HCl 10 mg 09/04/17 22:00 09/06/17 22:53 Apresoline - PO 10 mg BID [facility] Administration Hydrochlorothiazide 25 mg 09/03/17 12:30 09/06/17 09:21 Hctz - PO 25 mg DAILY [facility] Administration Ertapenem 1 gm/ Sodium 50 mls @ 50 mls/hr 09/04/17 12:00 09/06/17 11:19 Chloride IVPB 50 mls/hr DAILY [facility] Administration Protocol Insulin Aspart 1 vial 09/03/17 22:00 09/07/17 06:08 Novolog Vial Sliding Scale - SQ Not Given ACHS [facility] Protocol Valsartan 320 mg 09/03/17 12:01 09/06/17 09:21 Diovan - PO 320 mg DAILY [facility] Administration Vital Signs Period Temp Pulse Resp BP Sys/Austin Pulse Ox Last 24 Hr 97.9 F-98.8 F 57-65 16-17 135-153/64-80 98 Constitutional: Yes: No Distress, Calm, Obese Cardiovascular: Yes: Regular Rate and Rhythm, S1, S2. No: Gallop, Murmur Respiratory: Yes: Regular, CTA Bilaterally. No: Accessory Muscle Use, Rales, Wheezes Extremities: No: Cold Edema: No Neurological: Yes: Alert. No: Seizure Psychiatric: No: Agitated Labs: CBC, BMP 09/07/17 06:56 05/31/18 06:56 Assessment/Plan EKG: sr, 100 bpm. lvh. biphasic twaves in lateral leads. ? MD depressions EKG #2: sr, 91 bpm. slight extension of biphasic t waves in to anterolateral leads. otherwise similar cxr: wnl MPI 09/05/17 ([place]): no STs. small, mild-moderate defect basal to mid inferolateral wall is partially reversible. normal wall motion. likely diaphragmatic attenuation artict however cannot rule out mild ischemis in this territory. nl EF 56%. Echo 09/05/17: TDS. nl LV/EF. nl RV. valves WNL a/p: 62 yo with h/o possible prior "small" ND (no intervention) - on Plavix, HTN, HL, Morbid obesity, asthma who p/w cp, hospital course notable for uti. cp/palps/possible hx of prior cad: - very atypical cp sx's, non-anginal description ('breeze like feeling over my chest', non-exertional, transient with self resolution) - clinically stable in hospital - nonspecific T wave abnormalities on ekg. no sigs ACS (ecg not dynamic here, enzymes neg x3) - nuclear stress test with no high risk findings--all in all is c/w soft tissue attenuation vs low risk, small area of mild inferolat ischemia - con't anti-ND therapy with plavix, statin, atenolol, norvasc as doing - sx's highly unlikely to represent angina--would not add ranexa or nitrates at this time - outpt cardio f/u appropriate (has a doctor, per family at bedside) - echo WNL, nl EF htn - bp reasonably controlled (mostly 130s-40s) presently. - clonidine replaced with hydralazine here for hi bp's - same meds, outpt bp f/u uti: - ongoing mgm't per pmd cardiac mcdonnell remains stable
[2017-09-07] MEDS ORDERED: PT OWN MED DRAWER 7, Y5N ONE (10:23)
[2017-09-07] MEDS: HYDROCHLOROTHIAZIDE 25 MG TABLET (FP) PO SCH (10:28)
[2017-09-07] MEDS: CLOPIDOGREL BISULFATE 75 MG TABLET (FP) PO SCH (10:28)
[2017-09-07] MEDS: hydrALAZINE HCL 10 MG TABLET PO SCH ×2 (10:28→21:17)
[2017-09-07] MEDS: ATENOLOL 50 MG TABLET (FP) PO SCH (10:28)
[2017-09-07] MEDS: VALSARTAN 160 MG TABLET (UD) PO SCH (10:29)
[2017-09-07] MEDS: amLODIPine BESYLATE 10 MG TABLET (FP) PO SCH (10:29)
[2017-09-07] MEDS: ERTAPENEM SODIUM 1 GM in SODIUM CHLORIDE 50 ML IVPB SCH (10:37)
--- NOTE | 2017-09-07 10:56 | PN ---
Progress Note, Physician Chief Complaint: ID Day 3 Ertepenem No fever and no complaints Despite antibiotic - Current Medication List Current Medications: Active Medications Amlodipine Besylate (Norvasc -) 10 mg PO DAILY [facility] Last Admin: 09/07/17 10:29 Dose: 10 mg Atenolol (Tenormin -) 100 mg PO DAILY [facility] Last Admin: 09/07/17 10:28 Dose: 100 mg Atorvastatin Calcium (Lipitor -) 40 mg PO HS [facility] Last Admin: 09/06/17 22:53 Dose: 40 mg Clopidogrel Bisulfate (Plavix -) 75 mg PO DAILY [facility] Last Admin: 09/07/17 10:28 Dose: 75 mg Heparin Sodium (Porcine) (Heparin -) 5,000 unit SQ TID [facility] Last Admin: 09/07/17 05:35 Dose: 5,000 unit Hydralazine HCl (Apresoline -) 10 mg PO BID [facility] Last Admin: 09/07/17 10:28 Dose: 10 mg Hydrochlorothiazide (Hctz -) 25 mg PO DAILY [facility] Last Admin: 09/07/17 10:28 Dose: 25 mg Ertapenem 1 gm/ Sodium (Chloride) 50 mls @ 50 mls/hr IVPB DAILY [facility]; Protocol Last Admin: 09/07/17 10:37 Dose: 50 mls/hr Insulin Aspart (Novolog Vial Sliding Scale -) 1 vial SQ ACHS [facility]; Protocol Last Admin: 09/07/17 06:08 Dose: Not Given Valsartan (Diovan -) 320 mg PO DAILY [facility] Last Admin: 09/07/17 10:29 Dose: 320 mg - Objective Vital Signs: Vital Signs Temperature 97.9 F 09/07/17 06:00 Pulse Rate 57 L 09/07/17 06:00 Respiratory Rate 17 09/07/17 06:00 Blood Pressure 153/69 09/07/17 06:00 O2 Sat by Pulse Oximetry (%) 98 09/06/17 21:00 Constitutional: Yes: Well Nourished, No Distress Cardiovascular: Yes: S1, S2 Respiratory: Yes: WNL, Regular, CTA Bilaterally Gastrointestinal: Yes: WNL, Normal Bowel Sounds, Soft. No: Tenderness, Tenderness, Epigastrium Labs: CBC, BMP 09/07/17 06:56 09/07/17 06:56 INR, PTT INR 1.01 (0.82-1.09) 09/02/17 10:29 Assessment/Plan Microbiology 09/02/17 10:10 Urine - Urine Clean Catch Urine Culture - Final Escherichia Coli Esbl Lens Examiner Laboratory Tests 09/02/17 09/07/17 09/07/17 10:20 06:56 06:56 WBC 15.1 H Hgb 14.1 Plt Count 277 Creat Clearance w eGFR 50.50 Urine Bacteria Many Assessment Treatment for urinary infection but have to raise questions as to whether elevated WBC secondary tho that or ?unrelated Plan She wants to go home Could consider changing to macrobid and following up as outpt CBC ?hematology Check CRP
[2017-09-07] MEDS ORDERED: hydrALAZINE HCL 10 MG TABLET PO SCH ×2 (11:12→22:00)
[2017-09-07] MEDS ORDERED: hydrALAZINE HCL 10 MG TABLET PO ONE (11:45)
--- NOTE | 2017-09-07 13:26 | PN ---
Teaching Attending Note Name of Resident: Cory Farmer ATTENDING PHYSICIAN STATEMENT I saw and evaluated the patient. I reviewed the resident's note and discussed the case with the resident. I agree with the resident's findings and plan as documented. SUBJECTIVE:asymptomatic. denies Cp, SOB, fever, chills, N/V/C/D spoke with daughter present at bedside. states she had a pessary placed many years ago in as well as has a mesh from a hernia repair. OBJECTIVE: Last Vital Signs Temp Pulse Resp BP Pulse Ox 97.5 F L 62 18 132/72 98 09/07/17 10:00 09/07/17 10:00 09/07/17 10:00 09/07/17 10:00 09/06/17 21:00 General NAD abdomen soft NT/ND obese ASSESSMENT AND PLAN: 62 yof with PMHx of CAD s/p ?Small [place] on plavix (no reported cardiac cath or stent per patient), HTN, HLD, Morbid obesity,admitted with palpitations, abnormal EKG and lower uncomplicated UTI. 1. Palpitations- no event on monitor. cardiac markers negative. due to EKG changes. echo and NMST done. medical management. 2. EKG with lateral ischemia, no prior available 3. ESBL UTI- leukocytosis trending up. renal/bladder u/s is negative. as per daughter has a pessary. will call JEWELRY SALES REPRESENTATIVE to evaluate to see if possibly infected. if not and leukocytosis continues to trend up will consider CT scan abdomen with contrast to further evaluate. if no alternative source is found will need to consider maybe pyelonephritis as cystitis does not usually present with leukocytosis. cont ERtapenem day 4. contact precautions. ID consulted 4. Mild BLANE-stable 5. New onset DM- A1c 7.7. sugars controlled with sliding scale. can d/c on metformin. educated on risks assoc iwth DM and need for diet and medication compliance. nutritional eval 6. Morbid obesity- BMI 48.7 7. CAD on plavix ?prior small [place] in 2017 8. HTN- clonidine switched to hydralazine. monitor for improvement 9. HLD- statin 10. DVT ppx- lovenox 11. d/w daughter plan. possible need for pICC line and home infusions. states her mother lives with her and will be able to do infusions if needed. all questions answered. verbalized understanding of plan
[2017-09-07] MEDS: ATORVASTATIN CA 40 MG TABLET (FP) PO SCH (21:17)
--- NOTE | 2017-09-07 23:59 | CONS ---
DATE OF CONSULTATION: 09/07/2017 REASON FOR CONSULTATION: Rule out infected pessary. HISTORY OF PRESENT ILLNESS: Patient is a 62-year-old female with a past medical history of atherosclerotic heart disease who was admitted for palpitation and had a fever the night before. I was consulted because patient had had possible pessary, rule out pessary infection. PAST MEDICAL HISTORY: Significant for appeared to be vaginal hysterectomy and cholecystectomy. PHYSICAL EXAMINATION: GENERAL: Patient was in no distress. ABDOMEN: Soft and nontender. No masses, no CVA. PELVIC: External genitalia normal. Vagina has a suburethral mesh but no pessary was found, no pelvic masses were felt, no vaginal bleeding was seen. IMPRESSION: Suburethral mesh, urinary tract infection, there is no gynecological issue. She needs to be evaluated by urology for the suburethral mesh. IDALMIS GARZA M.D. [id number]
[2017-09-08] MEDS: HEPARIN NA (PORCINE) 5,000 UNITS/ML 1ML VIAL SQ SCH ×3 (05:54→22:17)
[2017-09-08] MEDS: hydrALAZINE HCL 10 MG TABLET PO SCH ×2 (05:54→22:17)
[2017-09-08] MEDS: INSULIN SLIDING SCALE (NOVOLOG) 1 VIAL SQ SCH ×4 (06:14→22:19)
[2017-09-08] MEDS: amLODIPine BESYLATE 10 MG TABLET (FP) PO SCH (09:54)
[2017-09-08] MEDS: CLOPIDOGREL BISULFATE 75 MG TABLET (FP) PO SCH (09:54)
[2017-09-08] MEDS: HYDROCHLOROTHIAZIDE 25 MG TABLET (FP) PO SCH (09:54)
[2017-09-08] MEDS: VALSARTAN 160 MG TABLET (UD) PO SCH (09:54)
[2017-09-08] MEDS: ERTAPENEM SODIUM 1 GM in SODIUM CHLORIDE 50 ML IVPB SCH (09:55)
--- NOTE | 2017-09-08 10:06 | EKG ---
Test Reason : Blood Pressure : / mmHG Vent. Rate : 056 BPM Atrial Rate : 056 BPM P-R Int : 178 ms QRS Dur : 100 ms QT Int : 432 ms P-R-T Axes : 045 -19 076 degrees QTc Int : 416 ms SINUS BRADYCARDIA VOLTAGE CRITERIA FOR LEFT VENTRICULAR HYPERTROPHY NONSPECIFIC T WAVE ABNORMALITY ABNORMAL ECG WHEN COMPARED WITH ECG OF 02-SEP-2017 15:30, VENT. RATE HAS DECREASED BY 35 BPM NONSPECIFIC T WAVE ABNORMALITY HAS REPLACED INVERTED T WAVES IN LATERAL LEADS Confirmed by DILSHAD BLAND MD ([id number]) on 09/08/2017 10:06:31 AM Referred By: Confirmed By:DILSHAD BLAND MD
[2017-09-08 10:24] LABS: BASO % 0.9 % (0-2.0); EOS % 1.9 % (0-4.5); HEMATOCRIT 44.1 % (32.4-45.2); LYMPH % 16.2 % (8-40); MCH 26.8 pg (25.7-33.7); MCHC 31.7 g/dl (32.0-36.0); MEAN CELL VOLUME 84.5 fl (80-96); MEAN PLT VOLUME 9.6 fl (7.5-11.1); MONO % 5.9 % (3.8-10.2); NEUT % 75.1 % (42.8-82.8); PLATELET COUNT 286 K/MM3 (134-434); RBC 5.22 M/mm3 (3.60-5.2); RDW 16.5 % (11.6-15.6)
[2017-09-08 10:36] LABS: CHLORIDE 103 mmol/L (98-107); POTASSIUM 4.7 mmol/L (3.5-5.1); SODIUM 139 mmol/L (136-145)
[2017-09-08 10:57] LABS: ALBUMIN 4.2 g/dl (3.4-5.0); ALK PHOS 130 U/L (45-117); ANION GAP 9 (8-16); BILIRUBIN,TOTAL 0.7 mg/dL (0.2-1.0); BLOOD UREA NITROGEN 41 mg/dL (7-18); CALCIUM 9.6 mg/dL (8.5-10.1); CO2 27 mmol/L (21-32); CREATININE 1.3 mg/dL (0.55-1.02); GLUCOSE,RANDOM 132 mg/dL (74-106); SGOT/AST 35 U/L (15-37); SGPT/ALT 66 U/L (12-78); TOT PROT 7.7 g/dl (6.4-8.2)
--- NOTE | 2017-09-08 11:11 | PN ---
Progress Note (short form) - Note Progress Note: cp History of Present Illness: no more cp no sob, palpitations, syncope Current Medications Generic Name Dose Route Start Last Admin Trade Name Fanta PRN Reason Stop Dose Admin Amlodipine Besylate 10 mg 09/03/17 10:00 09/08/17 09:54 Norvasc - PO 10 mg DAILY [facility] Administration Atorvastatin Calcium 40 mg 09/02/17 22:00 09/07/17 21:17 Lipitor - PO 40 mg HS [facility] Administration Clopidogrel Bisulfate 75 mg 09/03/17 10:00 09/08/17 09:54 Plavix - PO 75 mg DAILY [facility] Administration Heparin Sodium (Porcine) 5,000 unit 09/02/17 22:00 09/08/17 05:54 Heparin - SQ 5,000 unit TID [facility] Administration Hydralazine HCl 10 mg 09/07/17 22:00 09/08/17 05:54 Apresoline - PO 10 mg TID [facility] Administration Hydrochlorothiazide 25 mg 09/03/17 12:30 09/08/17 09:54 Hctz - PO 25 mg DAILY [facility] Administration Ertapenem 1 gm/ Sodium 50 mls @ 50 mls/hr 09/04/17 12:00 09/08/17 09:55 Chloride IVPB 50 mls/hr DAILY [facility] Administration Protocol Insulin Aspart 1 vial 09/03/17 22:00 09/08/17 11:08 Novolog Vial Sliding Scale - SQ Not Given ACHS [facility] Protocol Valsartan 320 mg 09/03/17 12:01 09/08/17 09:54 Diovan - PO 320 mg DAILY [facility] Administration Vital Signs Period Temp Pulse Resp BP Sys/Austin Pulse Ox Last 24 Hr 97.8 F-98.4 F 52-55 16-20 97-132/44-68 96 Constitutional: Yes: No Distress, Calm, Obese Cardiovascular: Yes: Regular Rate and Rhythm, S1, S2. No: Gallop, Murmur Respiratory: Yes: Regular, CTA Bilaterally. No: Accessory Muscle Use, Rales, Wheezes Extremities: No: Cold Edema: No Neurological: Yes: Alert. No: Seizure Psychiatric: No: Agitated Labs: CBC, BMP 09/08/17 09:50 EKG: sr, 100 bpm. lvh. biphasic twaves in lateral leads. ? ME depressions EKG #2: sr, 91 bpm. slight extension of biphasic t waves in to anterolateral leads. otherwise similar cxr: wnl MPI 09/05/17 ([place]): no STs. small, mild-moderate defect basal to mid inferolateral wall is partially reversible. normal wall motion. likely diaphragmatic attenuation artict however cannot rule out mild ischemis in this territory. nl EF 56%. Echo 09/05/17: TDS. nl LV/EF. nl RV. valves WNL a/p: 62 yo with h/o possible prior "small" [place] (no intervention) - on Plavix, HTN, HL, Morbid obesity, asthma who p/w cp, hospital course notable for uti. cp/palps/possible hx of prior cad: - very atypical cp sx's, non-anginal description ('breeze like feeling over my chest', non-exertional, transient with self resolution) - clinically stable in hospital - nonspecific T wave abnormalities on ekg. no sigs ACS (ecg not dynamic here, enzymes neg x3) - nuclear stress test with no high risk findings--all in all is c/w soft tissue attenuation vs low risk, small area of mild inferolat ischemia - con't anti-OR therapy with plavix, statin, atenolol, norvasc as doing - sx's highly unlikely to represent angina--would not add ranexa or nitrates at this time - outpt cardio f/u appropriate (has a doctor, per family at bedside) - echo WNL, nl EF htn - bp reasonably controlled (mostly 130s-40s) presently. - clonidine replaced with hydralazine here for hi bp's - same meds, outpt bp f/u uti: - ongoing mgm't per pmd, remains on iv abx cardiac mcdonnell remains stable
--- NOTE | 2017-09-08 11:54 | PN ---
Teaching Attending Note Name of Resident: Cory Farmer ATTENDING PHYSICIAN STATEMENT I saw and evaluated the patient. I reviewed the resident's note and discussed the case with the resident. I agree with the resident's findings and plan as documented. SUBJECTIVE:asymptomatic. denies becoming lightheaded or dizzy, BAIRD, blurred vision, abdominal pain, N/V/C/D OBJECTIVE: Last Vital Signs Temp Pulse Resp BP Pulse Ox 98.3 F 55 L 18 132/68 96 09/08/17 05:00 09/08/17 05:00 09/08/17 05:00 09/08/17 05:00 09/07/17 21:00 General NAD CV S1 S2 RRR no murmur/rub/gallop abdomen soft NT/ND obese ASSESSMENT AND PLAN: 62 yof with PMHx of CAD s/p ?Small [place] on plavix (no reported cardiac cath or stent per patient), HTN, HLD, Morbid obesity,admitted with palpitations, abnormal EKG and lower uncomplicated UTI. 1. Palpitations- no event on monitor. cardiac markers negative. due to EKG changes. echo and NMST done. medical management. 2. sinus bradycardia-noted since yesterday not just during sleep. on my evaluation HR 68. asymptomatic. will order repeat EKG. hold atenolol. evaluate if HR improves. may need reduced dosing. notify cardio 3. EKG with lateral ischemia, no prior available 4. ESBL UTI- leukocytosis trending up. IR[employer] STE[employer] WORK SUPERVISOR evaluated and found has urinary mesh. will call urology to evaluate if this could be infected. obtain CT abdomen /pelvis with contrast to further evaluate. cont ERtapenem day 5. contact precautions. ID consulted 5. Mild BLANE-slow uptrend. will start low dose IVF as will be receiving contrast with CT. 6. New onset DM- A1c 7.7. sugars controlled with sliding scale. can d/c on metformin. educated on risks assoc iwth DM and need for diet and medication compliance. nutritional eval 7. Morbid obesity- BMI 48.7 8. CAD on plavix ?prior small [place] in 2017 9. HTN- clonidine switched to hydralazine. monitor for improvement 10. HLD- statin 11. DVT ppx- lovenox
[2017-09-08 12:42] LABS: PLATELET ESTIMATE ADEQUATE
[2017-09-08] MEDS: SODIUM CHLORIDE 1,000 ML IV SCH (13:57)
[2017-09-08] MEDS: ATENOLOL 50 MG TABLET (FP) PO SCH (13:57)
--- NOTE | 2017-09-08 16:06 | PN ---
Physical Exam: SUBJECTIVE: Patient seen and examined at bedside. No complaints. OBJECTIVE: Vital Signs Period Temp Pulse Resp BP Sys/Austin Pulse Ox Last 24 Hr 97.5 F-98.3 F 52-70 16-20 117-155/44-87 96-97 Gen: Comfortable ,no distress HEENT: NCAT, moist membranes Neck: No JVD, supple Cor: RRR normal S1, S2, no murmurs, rubs, gallops Pulm: CTA b/l Abd: Obese, soft, nontender, no organomegally Extremities: 1+ edema Laboratory Results - last 24 hr 09/07/17 09/07/17 09/08/17 16:50 21:16 05:52 WBC RBC Hgb Hct MCV MCH MCHC RDW Plt Count MPV Total Counted Neutrophils % Neutrophils % (Manual) Lymphocytes % Lymphocytes % (Manual) Monocytes % Monocytes % (Manual) Eosinophils % Eosinophils % (Manual) Basophils % Nucleated RBC % Platelet Estimate ESR Sodium Potassium Chloride Carbon Dioxide Anion Gap BUN Creatinine Creat Clearance w eGFR POC Glucometer 103 120 114 Random Glucose Calcium Total Bilirubin AST ALT Alkaline Phosphatase Total Protein Albumin 09/08/17 09/08/17 09/08/17 09:50 09:50 09:50 WBC 16.0 H RBC 5.22 H Hgb 14.0 Hct 44.1 MCV 84.5 MCH 26.8 MCHC 31.7 L RDW 16.5 H Plt Count 286 MPV 9.6 Total Counted 100 Neutrophils % 75.1 Neutrophils % (Manual) 74.0 Lymphocytes % 16.2 Lymphocytes % (Manual) 20.0 Monocytes % 5.9 Monocytes % (Manual) 5 Eosinophils % 1.9 Eosinophils % (Manual) 1.0 Basophils % 0.9 Nucleated RBC % 0 Platelet Estimate Adequate ESR 2 Sodium 139 Potassium 4.7 Chloride 103 Carbon Dioxide 27 Anion Gap 9 BUN 41 H Creatinine 1.3 H Creat Clearance w eGFR 41.64 POC Glucometer Random Glucose 132 H Calcium 9.6 Total Bilirubin 0.7 AST 35 ALT 66 Alkaline Phosphatase 130 H Total Protein 7.7 Albumin 4.2 09/08/17 11:04 WBC RBC Hgb Hct MCV MCH MCHC RDW Plt Count MPV Total Counted Neutrophils % Neutrophils % (Manual) Lymphocytes % Lymphocytes % (Manual) Monocytes % Monocytes % (Manual) Eosinophils % Eosinophils % (Manual) Basophils % Nucleated RBC % Platelet Estimate ESR Sodium Potassium Chloride Carbon Dioxide Anion Gap BUN Creatinine Creat Clearance w eGFR POC Glucometer 93 Random Glucose Calcium Total Bilirubin AST ALT Alkaline Phosphatase Total Protein Albumin Active Medications Generic Name Dose Route Start Last Admin Trade Name Fanta PRN Reason Stop Dose Admin Amlodipine Besylate 10 mg 09/03/17 10:00 09/08/17 09:54 Norvasc - PO 10 mg DAILY CORNELIO Administration Atenolol 50 mg 09/08/17 12:15 09/08/17 13:57 Tenormin - PO 50 mg DAILY CORNELIO Administration Atorvastatin Calcium 40 mg 09/02/17 22:00 09/07/17 21:17 Lipitor - PO 40 mg HS CORNELIO Administration Clopidogrel Bisulfate 75 mg 09/03/17 10:00 09/08/17 09:54 Plavix - PO 75 mg DAILY CORNELIO Administration Heparin Sodium (Porcine) 5,000 unit 09/02/17 22:00 09/08/17 13:57 Heparin - SQ 5,000 unit TID CORNELIO Administration Hydralazine HCl 10 mg 09/08/17 22:00 Apresoline - PO BID CORNELIO Hydrochlorothiazide 25 mg 09/03/17 12:30 09/08/17 09:54 Hctz - PO 25 mg DAILY CORNELIO Administration Ertapenem 1 gm/ Sodium 50 mls @ 50 mls/hr 09/04/17 12:00 09/08/17 09:55 Chloride IVPB 50 mls/hr DAILY CORNELIO Administration Protocol Sodium Chloride 1,000 mls @ 100 mls/hr 09/08/17 12:00 09/08/17 13:57 Normal Saline - IV 100 mls/hr ASDIR CORNELIO Administration Insulin Aspart 1 vial 09/03/17 22:00 09/08/17 11:08 Novolog Vial Sliding Scale - SQ Not Given ACHS CORNELIO Protocol Valsartan 320 mg 09/03/17 12:01 09/08/17 09:54 Diovan - PO 320 mg DAILY CORNELIO Administration ASSESSMENT/PLAN: 62 yo F with PMHx of CAD s/p ?Small [place] in [place] on plavix (no reported cardiac cath or stent per patient), HTN, HLD, Morbid obesity, who presented to the ED complaining of palpitations. Pt was found to have abnormal EKG and lower uncomplicated UTI. Admitted for ACS w/u and UTI. #Lower UTI -UA with 1+ LE -UCx pos for ESBL e.coli -Isolation -ID consult: pt may need to go home on Macrobid -on Ertapenem -Bladder/renal US largely unremarkable. Possible surgical history noted. no hydro. no stones -per family, pt had a pessary/mesh placed many years ago -BATTERY INSPECTOR found that pt does not have a pessary, but does have a mesh. rec Urology consult -Urology was called. Will see the pt. -Contrast CTAP ordered -low threshold for repeat BCx #ACS neg -Trop neg x 2 -multiple EKGs with lat T wave changes -Cardio on board -2d echo Grade I diastolic dysfunction -stress test - mild to moderate inferolat reversible defect. #CAD -Cardio on board -2d echo Grade I diastolic dysfunction -stress test - mild to moderate inferolat reversible defect. -cont home plavix for ? [place] in 2006 -cont home lipitor -will f/u out pt #DM -New diagnosis this admission -A1C 7.7 -Pt made aware and counselled on diet, exercise, and medication -Associate Consulting Engineer consult -ISS. Has not been requiring consistently -BGM #HTN - well controlled -Amlodipine -Valsartan -HCTZ -Catapres switched to hydralazine by Cards -Atenolol (decreased to 50 b/c of bradycardia) #HLD -Lipitor #Morbid obesity -Pt counselled -has been completing pre-op clearance for bariatric surg #?Depression -seeing psych out pt as part of bariatric pre-op #FEN -not on fluid -hypermagnesemia ? 2/2 diuretics -resume Na controlled diet after stress test #PPx -HSQ #Dispo -Admitted for ACS w/o & UTI Cory Farmer MD PGY-1 IM Visit type - Emergency Visit Emergency Visit: No - New Patient This patient is new to me today: No - Critical Care Critical Care patient: No - Discharge Referral Referred to [facility] Med P.C.: No
--- NOTE | 2017-09-08 16:40 | CON.GU ---
Consult Consult Specialty:: Referred by:: medicine Reason for Consultation:: evaluation of suburethral sling - History of Present Illness Chief Complaint: elevated white blood cell count, UTI History of Present Illness: 62 year old woman who was admitted with cardiac symptoms who was found to have a UTI. She is being treated for this but her white blood cell count is increasing. On interview with the patient she reported that she had a suburethral sling in the DR about five years ago. She reports no symptoms related to the sling. Medicine asks to evaluate this sling as it might relate to her persistent leukocytosis. - History Source History Provided By: Patient Limitations to Obtaining History: No Limitations - Past Medical History Renal/: Yes: Other (cystocele, stress incontinence in the past. suburethral sling placed in DR) ...: No - Alcohol/Substance Use Hx Alcohol Use: No - Smoking History Smoking history: Never smoked Have you smoked in the past 12 months: No Home Medications - Allergies Allergies/Adverse Reactions: Allergies Allergy/AdvReac Type Severity Reaction Status Date / Time No Known Allergies Allergy Verified 09/02/17 09:25 - Home Medications Home Medications: Ambulatory Orders Amlodipine Besylate 10 mg PO DAILY 09/02/17 Atorvastatin Ca [Lipitor] 40 mg PO HS 09/02/17 Bisoprolol Fumarate [Zebeta (Nf) -] 10 mg PO DAILY 09/02/17 Clonidine HCl 0.1 mg PO HS 09/02/17 Clopidogrel Bisulfate [Plavix] 75 mg PO DAILY 09/02/17 Valsartan/Hydrochlorothiazide [Valsartan-Hctz 320-25 mg Tab] 1 each PO DAILY Review of Systems - Review of Systems Genitourinary: reports: No Symptoms Physical Exam- Vital Signs: Vital Signs Temperature 97.5 F L 09/08/17 14:01 Pulse Rate 70 09/08/17 14:01 Respiratory Rate 16 09/08/17 14:01 Blood Pressure 143/72 09/08/17 14:01 O2 Sat by Pulse Oximetry (%) 97 09/08/17 09:00 Gastrointestinal: No: WNL, Normal Bowel Sounds, Soft, Abdomen, Obese, Ascites, Distention, Hematemesis, Hemorrhoids, Hepatomegaly, Hernia, Hyperactive Bowel Sounds, Hypoactive Bowel Sounds, Melena, Palpable Mass, Pulsatile Mass, Rectal Bleeding, Splenomegaly, Tenderness, Tenderness, Epigastrium, Tenderness, Rebound , Vomiting, Other Renal/: Yes: Other (vaginal exam is normal. Suburethral sling palpated under vaginal mucosa at mid urethra. Appears to be in proper position, asymptomatic, well-healed, non tender). No: Bladder Distention, CVA Tenderness - Left, CVA Tenderness - Right, Torrez Present, Hematuria, Incontinence Labs: CBC, BMP 09/08/17 09:50 09/08/17 09:50 Problem List - Problems (1) Leukocytosis Assessment/Plan: sling is in proper position without evidence of infection. Code(s): D72.829 - ELEVATED WHITE BLOOD CELL COUNT, UNSPECIFIED
[2017-09-08] MEDS: ATORVASTATIN CA 40 MG TABLET (FP) PO SCH (22:17)
[2017-09-09] MEDS: HEPARIN NA (PORCINE) 5,000 UNITS/ML 1ML VIAL SQ SCH ×3 (05:55→22:08)
[2017-09-09] MEDS: INSULIN SLIDING SCALE (NOVOLOG) 1 VIAL SQ SCH ×4 (06:44→22:13)
[2017-09-09 08:08] LABS: BASO % 1.1 % (0-2.0); EOS % 1.5 % (0-4.5); HEMATOCRIT 43.3 % (32.4-45.2); HEMOGLOBIN 13.6 GM/dL (10.7-15.3); LYMPH % 19.7 % (8-40); MCH 26.8 pg (25.7-33.7); MCHC 31.4 g/dl (32.0-36.0); MEAN CELL VOLUME 85.3 fl (80-96); MEAN PLT VOLUME 10.2 fl (7.5-11.1); MONO % 7.4 % (3.8-10.2); NEUT % 70.3 % (42.8-82.8); PLATELET COUNT 246 K/MM3 (134-434); RBC 5.07 M/mm3 (3.60-5.2); RDW 16.7 % (11.6-15.6); WHITE BLOOD COUNT 12.9 K/mm3 (4.0-10.0)
[2017-09-09 08:39] LABS: CHLORIDE 107 mmol/L (98-107); POTASSIUM 4.6 mmol/L (3.5-5.1); SODIUM 142 mmol/L (136-145)
[2017-09-09 09:06] LABS: ALBUMIN 3.8 g/dl (3.4-5.0); ALK PHOS 124 U/L (45-117); ANION GAP 10 (8-16); BILIRUBIN,TOTAL 0.7 mg/dL (0.2-1.0); BLOOD UREA NITROGEN 37 mg/dL (7-18); CO2 25 mmol/L (21-32); CREATININE 1.2 mg/dL (0.55-1.02); GLUCOSE,RANDOM 100 mg/dL (74-106); SGOT/AST 36 U/L (15-37); SGPT/ALT 66 U/L (12-78)
[2017-09-09 09:08] LABS: CALCIUM 9.5 mg/dL (8.5-10.1)
[2017-09-09] MEDS ORDERED: PT OWN MED DRAWER 7, Y5N ONE ×2 (09:14→21:48)
[2017-09-09] MEDS: HYDROCHLOROTHIAZIDE 25 MG TABLET (FP) PO SCH (09:17)
[2017-09-09] MEDS: ATENOLOL 50 MG TABLET (FP) PO SCH (09:17)
[2017-09-09] MEDS: amLODIPine BESYLATE 10 MG TABLET (FP) PO SCH (09:17)
[2017-09-09] MEDS: CLOPIDOGREL BISULFATE 75 MG TABLET (FP) PO SCH (09:17)
[2017-09-09] MEDS: VALSARTAN 160 MG TABLET (UD) PO SCH (09:17)
[2017-09-09] MEDS: ERTAPENEM SODIUM 1 GM in SODIUM CHLORIDE 50 ML IVPB SCH (11:41)
[2017-09-09] MEDS: hydrALAZINE HCL 10 MG TABLET PO SCH ×2 (12:12→22:08)
[2017-09-09] MEDS: SODIUM CHLORIDE 1,000 ML IV SCH (13:12)
--- NOTE | 2017-09-09 14:48 | PN ---
Progress Note (short form) - Note Progress Note: asymptomatic. denies CP, SOB, fever, chills, abdominal pain , N/V/C/D Current Medications Generic Name Dose Route Start Last Admin Trade Name Fanta PRN Reason Stop Dose Admin Amlodipine Besylate 10 mg 09/03/17 10:00 09/09/17 09:17 Norvasc - PO 10 mg DAILY CORNELIO Administration Atenolol 50 mg 09/08/17 12:15 09/09/17 09:17 Tenormin - PO 50 mg DAILY CORNELIO Administration Atorvastatin Calcium 40 mg 09/02/17 22:00 09/08/17 22:17 Lipitor - PO 40 mg HS CORNELIO Administration Clopidogrel Bisulfate 75 mg 09/03/17 10:00 09/09/17 09:17 Plavix - PO 75 mg DAILY CORNELIO Administration Heparin Sodium (Porcine) 5,000 unit 09/02/17 22:00 09/09/17 13:12 Heparin - SQ 5,000 unit TID CORNELIO Administration Hydralazine HCl 10 mg 09/08/17 22:00 09/09/17 12:12 Apresoline - PO 10 mg BID CORNELIO Administration Hydrochlorothiazide 25 mg 09/03/17 12:30 09/09/17 09:17 Hctz - PO 25 mg DAILY CORNELIO Administration Ertapenem 1 gm/ Sodium 50 mls @ 50 mls/hr 09/04/17 12:00 09/09/17 11:41 Chloride IVPB 50 mls/hr DAILY CORNELIO Administration Protocol Sodium Chloride 1,000 mls @ 100 mls/hr 09/08/17 12:00 09/09/17 13:12 Normal Saline - IV 100 mls/hr ASDIR CORNELIO Administration Insulin Aspart 1 vial 09/03/17 22:00 09/09/17 11:51 Novolog Vial Sliding Scale - SQ Not Given ACHS CORNELIO Protocol Valsartan 320 mg 09/03/17 12:01 09/09/17 09:17 Diovan - PO 320 mg DAILY CORNELIO Administration Last Vital Signs Temp Pulse Resp BP Pulse Ox 98.2 F 70 20 151/67 94 L 09/09/17 09:24 09/09/17 09:24 09/09/17 09:24 09/09/17 09:24 09/08/17 21:00 General NAD CV S1 S2 RRR no murmur/rub/gallop abdomen soft NT/ND obese CBCD WBC 12.9 K/mm3 (4.0-10.0) H 09/09/17 07:30 RBC 5.07 M/mm3 (3.60-5.2) 09/09/17 07:30 Hgb 13.6 GM/dL (10.7-15.3) 09/09/17 07:30 Hct 43.3 % (32.4-45.2) 09/09/17 07:30 MCV 85.3 fl (80-96) 09/09/17 07:30 MCHC 31.4 g/dl (32.0-36.0) L 09/09/17 07:30 RDW 16.7 % (11.6-15.6) H 09/09/17 07:30 Plt Count 246 K/MM3 (134-434) 09/09/17 07:30 MPV 10.2 fl (7.5-11.1) 09/09/17 07:30 CMP Sodium 142 mmol/L (136-145) 09/09/17 07:30 Potassium 4.6 mmol/L (3.5-5.1) 09/09/17 07:30 Chloride 107 mmol/L (98-107) 09/09/17 07:30 Carbon Dioxide 25 mmol/L (21-32) 09/09/17 07:30 Anion Gap 10 (8-16) 09/09/17 07:30 BUN 37 mg/dL (7-18) H 09/09/17 07:30 Creatinine 1.2 mg/dL (0.55-1.02) H 09/09/17 07:30 Creat Clearance w eGFR 45.67 (>60) 09/09/17 07:30 Calcium 9.5 mg/dL (8.5-10.1) 09/09/17 07:30 Total Bilirubin 0.7 mg/dL (0.2-1.0) 09/09/17 07:30 AST 36 U/L (15-37) 09/09/17 07:30 ALT 66 U/L (12-78) 09/09/17 07:30 Alkaline Phosphatase 124 U/L (45-117) H 09/09/17 07:30 Total Protein 7.0 g/dl (6.4-8.2) 09/09/17 07:30 Albumin 3.8 g/dl (3.4-5.0) 09/09/17 07:30 ASSESSMENT AND PLAN: 62 yof with PMHx of CAD s/p ?Small [place] on plavix (no reported cardiac cath or stent per patient), HTN, HLD, Morbid obesity,admitted with palpitations, abnormal EKG and lower uncomplicated UTI. 1. Palpitations- no event on monitor. cardiac markers negative. due to EKG changes. echo and NMST done. medical management. 2. sinus bradycardia-now resolved. on reduced dose of atenolol. sill cont to monitor. 3. EKG with lateral ischemia, no prior available 4. ESBL UTI- leukocytosis trending down. urology evaluated and mesh is no infected. CT done and no acute pathology or sources of infection notified. will d/w ID to determine duration of treatement. may be able to convert to po tomororw. cont ERtapenem day 6. contact precautions. ID consulted 5. Mild BLANE-improved. cont low dose IVF as received contrast yesterday. can d/c in AM 6. New onset DM- A1c 7.7. sugars controlled with sliding scale. can d/c on metformin. educated on risks assoc iwth DM and need for diet and medication compliance. nutritional eval 7. Morbid obesity- BMI 48.7 8. CAD on plavix ?prior small [place] in 2017 9. HTN- clonidine switched to hydralazine. monitor for improvement 10. HLD- statin 11. DVT ppx- lovenox 12. spoke with daughter present at bedside. explained current plan and possible d/c tomorrow pending leukocytosis and ID recommendations. verbalized understanding and agreement. Visit type - Emergency Visit Emergency Visit: Yes ED Registration Date: 09/02/17 Care time: The patient presented to the Emergency Department on the above date and was hospitalized for further evaluation of their emergent condition. - New Patient This patient is new to me today: No - Critical Care Critical Care patient: No - Discharge Referral Referred to [facility] Med P.C.: No
[2017-09-09] MEDS: ATORVASTATIN CA 40 MG TABLET (FP) PO SCH (22:08)
[2017-09-10] MEDS: SODIUM CHLORIDE 1,000 ML IV SCH (06:44)
[2017-09-10] MEDS: INSULIN SLIDING SCALE (NOVOLOG) 1 VIAL SQ SCH ×2 (06:46→11:42)
[2017-09-10] MEDS: HEPARIN NA (PORCINE) 5,000 UNITS/ML 1ML VIAL SQ SCH (06:46)
[2017-09-10] MEDS ORDERED: PT OWN MED DRAWER 7, Y5N ONE (09:37)
[2017-09-10 09:43] VITALS: BP 146/65; PULSE 66; TEMP 98.1
[2017-09-10] MEDS: VALSARTAN 160 MG TABLET (UD) PO SCH (09:44)
[2017-09-10] MEDS: amLODIPine BESYLATE 10 MG TABLET (FP) PO SCH (09:44)
[2017-09-10] MEDS: ATENOLOL 50 MG TABLET (FP) PO SCH (09:44)
[2017-09-10] MEDS: hydrALAZINE HCL 10 MG TABLET PO SCH (09:44)
[2017-09-10] MEDS: CLOPIDOGREL BISULFATE 75 MG TABLET (FP) PO SCH (09:44)
[2017-09-10] MEDS: HYDROCHLOROTHIAZIDE 25 MG TABLET (FP) PO SCH (09:44)
--- NOTE | 2017-09-10 09:56 | PN ---
Teaching Attending Note Name of Resident: Barrett Mohan ATTENDING PHYSICIAN STATEMENT I saw and evaluated the patient. I reviewed the resident's note and discussed the case with the resident. I agree with the resident's findings and plan as documented. SUBJECTIVE:asymptomatic. denies CP, SOB, fever, chills, abdominal pain, N/V/C/D OBJECTIVE: Last Vital Signs Temp Pulse Resp BP Pulse Ox 98.1 F 66 18 146/65 97 09/10/17 09:43 09/10/17 09:43 09/10/17 09:43 09/10/17 09:43 09/09/17 21:00 General NAD Abdomen soft NT/ND ASSESSMENT AND PLAN: 62 yof with PMHx of CAD s/p ?Small [place] on plavix (no reported cardiac cath or stent per patient), HTN, HLD, Morbid obesity,admitted with palpitations, abnormal EKG and lower uncomplicated UTI. 1. Palpitations- no event on monitor. cardiac markers negative. due to EKG changes. echo and NMST done. medical management. 2. sinus bradycardia-now resolved. on reduced dose of atenolol. sill cont to monitor. 3. EKG with lateral ischemia, no prior available 4. ESBL UTI- leukocytosis trending down. awaiting todays labs. if stable or improved can possibly switch to poabx today. will d/w ID on ertapenem day 7. contact precautions. ID consulted 5. Mild BLANE-improved. d/c IVF 6. New onset DM- A1c 7.7. sugars controlled with sliding scale. can d/c on metformin. educated on risks assoc iwth DM and need for diet and medication compliance. nutritional eval 7. Morbid obesity- BMI 48.7 8. CAD on plavix ?prior small [place] in 2017 9. HTN- clonidine switched to hydralazine. monitor for improvement 10. HLD- statin 11. DVT ppx- lovenox 12. possible d/c today pending ID recommendations
[2017-09-10] MEDS: ERTAPENEM SODIUM 1 GM in SODIUM CHLORIDE 50 ML IVPB SCH (10:36)
[2017-09-10 10:50] LABS: BASO % 0.4 % (0-2.0); HEMATOCRIT 35.5 % (32.4-45.2); HEMOGLOBIN 11.9 GM/dL (10.7-15.3); LYMPH % 13.2 % (8-40); MCH 26.5 pg (25.7-33.7); MCHC 33.6 g/dl (32.0-36.0); MEAN PLT VOLUME 7.2 fl (7.5-11.1); MONO % 9.2 % (3.8-10.2); NEUT % 77.2 % (42.8-82.8); PLATELET COUNT 408 K/MM3 (134-434); RDW 15.6 % (11.6-15.6); WHITE BLOOD COUNT 7.6 K/mm3 (4.0-10.0)
--- NOTE | 2017-09-10 15:43 | DS ---
Physical Exam: SUBJECTIVE: Patient seen and examined OBJECTIVE: Vital Signs Period Temp Pulse Resp BP Sys/Austin Pulse Ox Last 24 Hr 97.9 F-98.1 F 57-66 18-20 132-146/59-78 97-97 PHYSICAL EXAM GENERAL: The patient is awake, alert, and fully oriented, in no acute distress. HEAD: Normal with no signs of trauma. ENT: moist mucous membranes. NECK: Trachea midline, full range of motion, supple. LUNGS: Breath sounds equal, clear to auscultation bilaterally, no wheezes, no crackles, no accessory muscle use. HEART: S1, S2 normal ABDOMEN: Soft, nontender, nondistended, normoactive bowel sounds, no guarding, no rebound, PSYCH: Normal mood, normal affect. SKIN: Warm, dry, LABS Laboratory Results - last 24 hr 09/09/17 09/09/17 09/10/17 16:32 22:10 06:44 WBC RBC Hgb Hct MCV MCH MCHC RDW Plt Count MPV Neutrophils % Lymphocytes % Monocytes % Eosinophils % Basophils % Nucleated RBC % POC Glucometer 93 111 111 09/10/17 09/10/17 10:25 11:41 WBC 7.6 D RBC 4.50 Hgb 11.9 D Hct 35.5 D MCV 79.0 L MCH 26.5 MCHC 33.6 RDW 15.6 Plt Count 408 D MPV 7.2 L D Neutrophils % 77.2 Lymphocytes % 13.2 D Monocytes % 9.2 Eosinophils % 0.0 D Basophils % 0.4 Nucleated RBC % 0 POC Glucometer 90 Laboratory Tests 09/02/17 09/02/17 09/03/17 10:29 10:29 07:10 WBC 13.3 H 11.7 H INR 1.01 D-Dimer 265 Hemoglobin A1c % 09/03/17 09/04/17 09/06/17 07:10 06:50 06:30 WBC 11.9 H 14.5 H INR D-Dimer Hemoglobin A1c % 7.7 H 09/07/17 09/08/17 09/09/17 06:56 09:50 07:30 WBC 15.1 H 16.0 H 12.9 H INR D-Dimer Hemoglobin A1c % 09/02/17 10:10 Urine - Urine Clean Catch Urine Culture - Final Escherichia Coli Esbl Smoking Pipe Liner CT abdomen and pelvis: . No acute pathology within the abdomen or pelvis. 2. S/ P hysterectomy with metallic object in the region of the cervical stump. Clinical correlation and follow-up recommended. Please see above discussion. Renal ultrasound : The kidneys appear unremarkable demonstrating no sonographic abnormality. No post void residual urinary volume is seen. The uterus and ovaries are not definitely identified - ? prior surgery. No gross foreign body is identified. Given the provided clinical history additional evaluation CXR : Impression: No acute pathology. No significant change since 04/07/2017 ECHO: LV function and thickness normal, Grade 1 diastolic dysfunction, trace MR , trace Tr, Nuclear stress test : small to moderate basla to mid inferolateral wall defect that is partially reversible. The obsereved devfect is associated with normal wall motion and thus likely represents diaphragmatic attenuation artifect however cannot ruleout mild ischemiain this territory LVEF 56%, LVEDV 70ml HOSPITAL COURSE: 62 yo Kazakh speaking F with PMhx of HTN, HLD and OR presents with 3 day history of palpitations. She states that for the past three days she has had intermittent episodes of palpitations which last for few seconds and resolve on their own. She also states that she has a "breeze-like" sensation that radiates across her chest and down her left arm. Not associated with activity and resolved spontaneously. She had a "mini OR" one year prior in [place] but denies ever having cath or stress test done. Of note she states that the only change is that when these symptoms started it was after receiving cortisol injection for shoulder pain.She also endorses increased urinary frequency. Currently denies CP,BAIRD,SOB, abdominal pain, nausea, vomiting , fever, or chills. examination and investigations were done for ekg T wave inversion in lateral lead cardiology was consulted, echo and stress test was done. Reports mention above. Patient was started on atenolol 50 mg daily. patient was also found to have hypertension for which he was started on hydralazine ( 10 mg bid) along with he home valsartan/hctz and amlodipine. Patient was also found to have UTI for which ID was consulted and was started on eratapenem for esbl e coli and is discharged on nitrofurantoin for 7 days. Patient also found to have Hba1c of 7.7 but didn't require insulin in hospital. For DM patient is advised to lose weight eat healthy diet and get Hba1c check after 3 months with her primary. Now patient condition has improved, accepting orally, no more palpitations, wbc has decreased. Consults: Dr Moise, Dr Banks. Date of Admission:09/02/17 Date of Discharge: 09/10/17 Minutes to complete discharge: 45 Discharge Summary Reason For Visit: CHEST PAIN Condition: Improved - Instructions Diet, Activity, Other Instructions: You came here with palpitations and EKG was done which showed lateral ischemia for which ECHO and NMST was done. You also found to have Urinary tract infection for which you are treated on IV antibiotic eratapenem and is dischaged on Macrobid/ Nitrofurantoin 100mg twice a day for 7 days. Your prescription has been sent to Your pharmacy. For Blood pressure we had added Hydralazine 10mg twice a day and atenolol 50mg daily. Also keep on taking your old BP medications. we had stopped your bisoprolol ( zebeta) we had stopped your clonidine. You were found to have HBa1c of 7.7 but you didn't require insulin in hospital. Try to control your blood sugar with diet and exercise. Get repeat HbA1c after 3 months from your primary care doctor. Prescription for glucometer and strips is also sent to your pharmacy. Chack your blood sugar daily and make a log of it. Present log to your primary care doctor. Try to lose weight. Follow up with Donkey [employer] Dr Rea in one week. Follow up with infectious disease Dr Hart in one week. Follow up with your primary care in one week. I Had given you supply of medicine for 30 days for refills you have to see your doctor with in a week. All your prescriptions has been sent to your pharmacy. If develop nausea, vomiting, chest pain, fever, chills, palpitations contact doctor or go to hospital. Referrals: Joshua Hart MD [Staff Physician] - 1 Week Michael Funes PA [Primary Care Provider] - 1 Week Robert Rea MD [Staff Physician] - 1 Week Disposition: HOME - Home Medications Comprehensive Discharge Medication List: Ambulatory Orders Amlodipine Besylate 10 mg PO DAILY #30 tablet 09/10/17 Atenolol [Tenormin -] 50 mg PO DAILY #30 tablet 09/10/17 Atorvastatin Ca [Lipitor] 40 mg PO HS #30 tablet 09/10/17 Clopidogrel Bisulfate [Plavix] 75 mg PO DAILY #30 tablet 09/10/17 Hydralazine HCl 10 mg PO BID #60 tablet 09/10/17 Miscellaneous Medical Supply [Glucometer Device] 1 each AD ASDIR #1 kit Miscellaneous Medical Supply [Glucometer Test Strips #100] 1 each AD ASDIR #1 box 09/10/17 Nitrofurantoin Macrocrystal [Macrodantin -] 100 mg PO BID #14 capsule 09/10/17 Valsartan/Hydrochlorothiazide [Valsartan-Hctz 320-25 mg Tab] 1 each PO DAILY # 30 tablet 09/10/17 This patient is new to me today: No Emergency Visit: Yes ED Registration Date: 09/02/17 Care time: The patient presented to the Emergency Department on the above date and was hospitalized for further evaluation of their emergent condition. Critical Care patient: No - Discharge Referral Referred to [facility] Med P.C.: No
[2017-09-10] MEDS ORDERED: NITROFURANTOIN MACROCRYSTAL 50 MG CAPSULE (FP) PO SCH (22:00)
== END 2017-09-10 13:33 | disposition home or self-care (01) | DRG 463 ==
LOC: JER 09:19 → JERBED 12:34 → OBSVTOIN 14:32 → J4W 17:26 → J4S 09-06 00:08 → J6S 09-09 06:58
PROVIDERS: ADMIT Hospitalist; ATTEND Internal Medicine
DX: N39.0 Urinary tract infection, site not specified (principal); R07.9 Chest pain, unspecified; I25.10 Atherosclerotic heart disease of native coronary artery without angina pectoris; Z16.12 Extended spectrum beta lactamase (ESBL) resistance; R00.1 Bradycardia, unspecified; N17.9 Acute kidney failure, unspecified; E11.9 Type 2 diabetes mellitus without complications; E66.01 Morbid (severe) obesity due to excess calories; Z68.42 Body mass index [BMI] 45.0-49.9, adult; E78.5 Hyperlipidemia, unspecified; R00.2 Palpitations; D72.829 Elevated white blood cell count, unspecified; E83.41 Hypermagnesemia; I10 Essential (primary) hypertension
CPT/HCPCS: 36415; 71045-TC-FY; 74176-TC; 76775-TC; 76856-TC; 78452-TC; 80048; 80053; 80061; 81003; 81015; 82550; 82553; 82962; 83036; 83721; 83735; 84100; 84484; 85025; 85379; 85610; 85651; 86140; 87086; 87186; 93005; 93010; 93017; 93306-TC; 97116-GP; 97161-GP; 99284-25; A9502; G0378; J0735; J1644; J2785; J7030